=== PATIENT | female | born 1990 | race Caucasian/White ===

== ENCOUNTER 2016-10-20 18:19 | Emergency (ER) | payer BC ==
[2016-10-20 18:38] VITALS: BP 143/84
[2016-10-20] MEDS ORDERED: Ibuprofen TAB* 600 MG PO ONE (18:46)
--- NOTE | 2016-10-20 19:12 | UC ---
Elbow Pain - HPI Summary HPI Summary: hit left elbow on a chair at work today, has continue pain in left elbow - History of Current Complaint Chief Complaint: UCUpperExtremity Stated Complaint: ELBOW INJURY Time Seen by Provider: 10/20/16 18:42 Hx Obtained From: Patient Hx Last Menstrual Period: one month ago ?: No Mechanism of Injury: hit elbow on chair arm Onset/Duration: Hours, Traumatic, Still Present Severity Initially: Moderate Severity Currently: Moderate Pain Intensity: 6 Pain Scale Used: 0-10 Numeric Location Of Pain: Is Discrete @ - left elbow Character: Aching, Throbbing Aggravating Factor(s): Movement Alleviating Factor(s): Rest, Ice, OTC Meds Associated Signs And Symptoms: Positive: Negative - Allergies/Home Medications Allergies/Adverse Reactions: Allergies Allergy/AdvReac Type Severity Reaction Status Date / Time No Known Allergies Allergy Verified 10/20/16 18:38 PMH/Surg Hx/FS Hx/Imm Hx Previously Healthy: No Endocrine History Of: Denies: Diabetes, Thyroid Disease Cardiovascular History Of: Denies: Cardiac Disorders, Hypertension, Pacemaker/ICD Respiratory History Of: Denies: COPD, Asthma GI/ History Of: Reports: Ulcer - stomach ulcers Neurological History Of: Reports: Migraine - 3X A WEEK - Surgical History Surgical History: Yes Surgery Procedure, Year, and Place: Tonsillectomy, 2007, [facility] Dr. Kelley. Partial Discectomy L4 L5, 2008, [place]. Partial Discectomy L4 L5, 2009, [facility] [place] Dr. Leon. , 10/05/13, [facility] [place]. BACK SX--2014. jake jessica 2014 - Family History Known Family History: Positive: None, Unknown, Other - father with migraines - Social History Occupation: Employed Full-time Lives: With Family Alcohol Use: Occasionally Alcohol Amount: "a couple ... maybe once a month" Substance Use Type: None Smoking Status (MU): Current Every Day Smoker Type: Cigarettes Amount Used/How Often: 1/2 ppd Length of Time of Smoking/Using Tobacco: 3 YRS Have You Smoked in the Last Year: Yes Household Exposure Type: Cigarettes Cessation Counseling: Patient Advised to Stop - Immunization History Most Recent Influenza Vaccination: no Review of Systems Constitutional: Negative Skin: Negative Eyes: Negative ENT: Negative Respiratory: Negative Cardiovascular: Negative Gastrointestinal: Negative Genitourinary: Negative Motor: Negative Neurovascular: Negative Musculoskeletal: Arthralgia - left elbow pain Neurological: Negative Psychological: Negative All Other Systems Reviewed And Are Negative: Yes Physical Exam Triage Information Reviewed: Yes Appearance: Well-Appearing, No Pain Distress, Well-Nourished Vital Signs: Initial Vital Signs Temp 98.1 F 10/20/16 18:34 Pulse 79 10/20/16 18:34 Resp 18 10/20/16 18:34 BP 143/84 10/20/16 18:34 Pulse Ox 100 10/20/16 18:34 Vital Signs Reviewed: Yes Eye Exam: Normal Eyes: Positive: Conjunctiva Clear ENT Exam: Normal ENT: Positive: Normal ENT inspection, Hearing grossly normal. Negative: Nasal congestion, Nasal drainage, Trismus, Muffled/hoarse voice Dental Exam: Normal Neck exam: Normal Neck: Positive: Supple, Nontender, No Lymphadenopathy Respiratory Exam: Normal Respiratory: Positive: Chest non-tender, Lungs clear, Normal breath sounds, No respiratory distress, No accessory muscle use Cardiovascular Exam: Normal Cardiovascular: Positive: RRR, No Murmur, Pulses Normal, Brisk Capillary Refill Musculoskeletal Exam: Normal Musculoskeletal: Positive: No Edema, Strength Limited @ - left elbow, ROM Limited @ - painful to supinate Neurological Exam: Normal Neurological: Positive: Alert, Muscle Tone Normal Psychological Exam: Normal Skin Exam: Normal Diagnostics - Radiology No standard instances Xray Interpretation: No Acute Changes Radiology Interpretation Completed By: Radiologist Elbow Pain Course/Dx - Course Course Of Treatment: mee wrap, rice, ibuprofen follow with orth in 4 days if not returned to baseline function and is pain free - Differential Dx/Diagnosis Differential Diagnosis/HQI/PQRI: Contusion, Fracture (Closed), Sprain, Strain Provider Diagnoses: left elbow contusion Discharge - Discharge Plan Condition: Stable Disposition: HOME Patient Education Materials: Ibuprofen (By mouth), Contusion in Adults (ED), Arthralgia (ED), RICE Therapy (ED) Forms: *Work Release Referrals: Clayton Alvarenga MD [Primary Care Provider] - Fernanda Tabor MD [Medical Doctor] - 7 Days
--- NOTE | 2016-10-20 19:19 | RAD ---
INDICATION: Hit elbow on a chair . Left elbow pain COMPARISON: None TECHNIQUE: AP, lateral, and oblique views were obtained. FINDINGS: The bony structures, joint spaces, and soft tissues are normal for age. IMPRESSION: NEGATIVE EXAMINATION.
== END 2016-10-20 19:33 | disposition home or self-care (01) ==
LOC: UCEAST 18:19
DX: S50.02XA Contusion of left elbow, initial encounter (principal); W22.03XA Walked into furniture, initial encounter; Y93.9 Activity, unspecified; Y92.59 Other trade areas as the place of occurrence of the external cause; Y99.0 Civilian activity done for income or pay; F17.210 Nicotine dependence, cigarettes, uncomplicated
CPT/HCPCS: 99212; A9270-GY; G0463

== ENCOUNTER 2016-10-25 15:09 | Emergency (ER) | payer BC ==
[2016-10-25 15:17] VITALS: BP 138/79
--- NOTE | 2016-10-25 15:33 | UC ---
Upper Extremity HPI - HPI Summary HPI Summary: Pt contused L elbow on chair 10/20/16. Was given work note through yesterday and had today off. Needs note to return to full duty tomorrow. No longer has pain or restricted ROM. Would like to return to work. - History of Current Complaint Chief Complaint: UCUpperExtremity Stated Complaint: NOTE FOR WORK Time Seen by Provider: 10/25/16 15:23 Hx Obtained From: Patient Hx Last Menstrual Period: 09/29/16 ?: No Onset/Duration: Sudden Onset Severity Initially: Moderate Severity Currently: None Location Of Pain: Is Discrete @ Character: Dull Aggravating Factor(s): Movement Alleviating Factor(s): Nothing Associated Signs And Symptoms: Positive: Swelling - resolved Related History: Dominant Hand Right - Allergies/Home Medications Allergies/Adverse Reactions: Allergies Allergy/AdvReac Type Severity Reaction Status Date / Time No Known Allergies Allergy Verified 10/25/16 15:17 PMH/Surg Hx/FS Hx/Imm Hx Endocrine History Of: Denies: Diabetes, Thyroid Disease Cardiovascular History Of: Denies: Cardiac Disorders, Hypertension, Pacemaker/ICD Respiratory History Of: Denies: COPD, Asthma GI/ History Of: Reports: Ulcer - stomach ulcers Neurological History Of: Reports: Migraine - 3X A WEEK - Surgical History Surgical History: Yes Surgery Procedure, Year, and Place: Tonsillectomy, 2007, [facility] Dr. Kelley. Partial Discectomy L4 L5, 2008, [place]. Partial Discectomy L4 L5, 2009, [facility] [place] Leon. , 10/05/13, [facility] [place]. BACK SX--2014. lap jessica 2014 - Family History Known Family History: Positive: None, Unknown, Other - father with migraines - Social History Occupation: Employed Full-time Alcohol Use: Occasionally Alcohol Amount: "a couple ... maybe once a month" Substance Use Type: None Smoking Status (MU): Current Every Day Smoker Type: Cigarettes Amount Used/How Often: 1/2 ppd Length of Time of Smoking/Using Tobacco: 3 YRS Have You Smoked in the Last Year: Yes Household Exposure Type: Cigarettes - Immunization History Most Recent Influenza Vaccination: no Review of Systems Constitutional: Negative Skin: Negative Eyes: Negative ENT: Negative Respiratory: Negative Cardiovascular: Negative Gastrointestinal: Negative Genitourinary: Negative Motor: Negative Neurovascular: Negative Musculoskeletal: Arthralgia Neurological: Negative Psychological: Negative All Other Systems Reviewed And Are Negative: Yes Physical Exam Triage Information Reviewed: Yes Appearance: Well-Appearing, No Pain Distress, Well-Nourished Vital Signs: Initial Vital Signs Temp 97.6 F 10/25/16 15:13 Pulse 71 10/25/16 15:13 Resp 16 10/25/16 15:13 BP 138/79 10/25/16 15:13 Pulse Ox 100 10/25/16 15:13 Vital Signs Reviewed: Yes Eye Exam: Normal Eyes: Positive: Conjunctiva Clear ENT Exam: Normal ENT: Positive: Normal ENT inspection, Hearing grossly normal, Pharynx normal, TMs normal Dental Exam: Normal Neck exam: Normal Neck: Positive: Supple, Nontender Respiratory Exam: Normal Respiratory: Positive: Chest non-tender, Lungs clear, Normal breath sounds, No respiratory distress, No accessory muscle use Cardiovascular Exam: Normal Cardiovascular: Positive: RRR, No Murmur Musculoskeletal Exam: Normal Musculoskeletal: Positive: Strength Intact, ROM Intact Neurological Exam: Normal Psychological Exam: Normal Skin Exam: Normal Upper Extremity Course/Dx - Differential Dx/Diagnosis Provider Diagnoses: L elbow contusion resolved Discharge - Discharge Plan Condition: Stable Disposition: HOME Patient Education Materials: Contusion in Adults (ED) Forms: *Work Release Referrals: Clayton Alvarenga MD [Primary Care Provider] - Additional Instructions: Your symptoms have resolved. No further testing or treatment is needed at this time. Please call or return if you have new questions or concerns.
== END 2016-10-25 15:32 | disposition home or self-care (01) ==
LOC: UCEAST 15:09
DX: S50.02XD Contusion of left elbow, subsequent encounter (principal); W22.03XD Walked into furniture, subsequent encounter; F17.210 Nicotine dependence, cigarettes, uncomplicated
CPT/HCPCS: 99211; G0463

== ENCOUNTER 2016-12-16 12:35 | Emergency (ER) | payer BC ==
[2016-12-16] MEDS ORDERED: Ondansetron INJ* 2 MG/ML VIAL IV ONE (15:49)
[2016-12-16] MEDS ORDERED: Ketorolac INJ* 30 MG/ML 1 ML VIAL IV ONE (15:50)
[2016-12-16] MEDS: NS 0.9% 1000 ML* 2,000 ML IV ONE ×2 (16:24→16:28)
--- NOTE | 2016-12-16 16:36 | RAD ---
HISTORY: Headache COMPARISONS: June 25, 2013 TECHNIQUE: Multiple contiguous axial CT scans were obtained of the head without intravenous contrast. FINDINGS: HEMORRHAGE/INFARCT: There is no hemorrhage or acute infarct. MASSES/SHIFT: There is no mass or shift. EXTRA-AXIAL SPACES: There are no extra-axial fluid collections. SULCI AND VENTRICLES: The sulci and ventricles are normal in size and position for the patient's stated age. CEREBRUM: There are no focal parenchymal abnormalities. BRAINSTEM: There are no focal parenchymal abnormalities. CEREBELLUM: There are no focal parenchymal abnormalities. VESSELS: The vessels are grossly normal. PARANASAL SINUSES: The paranasal sinuses are clear. ORBITS: The orbits are unremarkable. BONES AND SOFT TISSUE: No bone or soft tissue abnormalities are noted. OTHER: None IMPRESSION: NO ACUTE INTRACRANIAL PATHOLOGY.
[2016-12-16 16:37] LABS: Hematocrit 40 % (35-47); Hemoglobin 13.5 g/dl (12.0-16.0); Mean Corpuscular HGB Conc 33 g/dl (31-36); Mean Corpuscular Hemoglobin 29 pg (27-31); Mean Corpuscular Volume 87 fL (80-97); Mean Platelet Volume 7 um3 (7.4-10.4); Red Blood Count 4.67 10^6/ul (4.0-5.4); Red Cell Distribution Width 14 % (10.5-15); White Blood Count 12.4 10^3/ul (3.5-10.8)
[2016-12-16 16:55] LABS: ALT 15 U/L (7-52); AST 16 U/L (13-39); Albumin 5.6 g/dL (3.2-5.2); Alkaline Phosphatase 79 U/L (34-104); Anion Gap 10 mmol/L (2-11); BUN/Creatinine Ratio 20.9 (8-20); Blood Urea Nitrogen 18 mg/dL (6-24); C Reactive Protein 3.75 mg/L (< 5.00); CO2 Carbon Dioxide 25 mmol/L (22-32); Calcium 10.7 mg/dL (8.6-10.3); Chloride 102 mmol/L (101-111); EGFR African American 104.3 (>60); EGFR Non-African American 81.1 (>60); Globulin 3.7 g/dL (2-4); Glucose 79 mg/dL (70-100); Potassium 3.6 mmol/L (3.5-5.0); Sodium 137 mmol/L (133-145); Total Protein 9.3 g/dL (6.4-8.9)
--- NOTE | 2016-12-16 17:23 | ED ---
Renetta Moses Anna, scribed for Sami Saba MD on 12/16/16 at 1549 . Headache - HPI Summary HPI Summary: Patient is a 26 y/o female coming to [facility] presenting with the sudden onset of a constant ANDRADE that began five days ago. She describes the severity of the pain as 8/10. She has additionally had photophobia, dizziness, nausea, and fatigue. Denies aura or blurred vision, fever, or neck pain. The pain is worse with sound and light. Her Has are typically alleviated by Excedrin, but not this time. She took a dose of Excedrin at 1100 today. This ANDRADE is located in the right frontal region, though her typical ANDRADE is in the left frontal region. Patient medications have been reviewed this visit. 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 Court Magistrate - accompanied by significant other Hx Last Menstrual Period: 09/29/16 Onset/Duration: Sudden Onset, Started days ago, Still Present Initially Headache Was: Initial Pain Scale(0-10)= - 8/10 Currently Pain Is: Current Pain Scale(0-10)= - 8/10 Timing: Constant Location of Headache: Frontal Aggravating Factor: Bright Lights, Other - Noises Allevating Factors: Nothing - Allergies/Home Medications Allergies/Adverse Reactions: Allergies Allergy/AdvReac Type Severity Reaction Status Date / Time No Known Allergies Allergy Verified 10/25/16 15:17 PMH/Surg Hx/FS Hx/Imm Hx Endocrine/Hematology History: Denies: Hx Diabetes, Hx Thyroid Disease Cardiovascular History: Denies: Hx Hypertension, Hx Pacemaker/ICD, Other Cardiovascular Problems/ Disorders Respiratory History: Denies: Hx Asthma, Hx Chronic Obstructive Pulmonary Disease (COPD) GI History: Reports: Hx Ulcer - stomach ulcers History: Reports: Hx Kidney Infection - 6 YEARS AGO Sensory History: Reports: Hx Contacts or Glasses - GLASSES Denies: Hx Hearing Aid Opthamlomology History: Reports: Hx Contacts or Glasses - GLASSES Neurological History: Reports: Hx Headaches, Hx Migraine - 3X A WEEK Denies: Other Neuro Impairments/Disorders Psychiatric History: Denies: Hx Panic Disorder - Surgical History Surgery Procedure, Year, and Place: Tonsillectomy, 2008, [facility] Dr. Kelley. Partial Discectomy L4 L5, 2009, [place]. Partial Discectomy L4 L5, 2009, [facility] [place] Dr. Leon. , 10/05/13, [facility] [place]. BACK SX--2014. lap jessica 2014 Hx Anesthesia Reactions: No - Immunization History Date of Tetanus Vaccine: UP TO DATE Date of Influenza Vaccine: NONE Infectious Disease History: No Infectious Disease History: Denies: Hx Clostridium Difficile, Hx Hepatitis, Hx Human Immunodeficiency Virus (HIV), Hx of Known/Suspected MRSA, Hx Shingles, Hx Tuberculosis, Hx Known/ Suspected VRE, Hx Known/Suspected VRSA, History Other Infectious Disease, Traveled Outside the [place] in Last 30 Days - Family History Known Family History: Positive: Cardiac Disease, Other - father with migraines - Social History Lives: With Family Alcohol Use: Occasionally Alcohol Amount: "a couple ... maybe once a month" Substance Use Type: Reports: None Smoking Status (MU): Current Every Day Smoker Type: Cigarettes Amount Used/How Often: 1/2 ppd Length of Time of Smoking/Using Tobacco: 3 YRS Have You Smoked in the Last Year: Yes Review of Systems Positive: Fatigue. Negative: Fever Positive: Photophobia. Negative: Blurred Vision Positive: Nausea Neurological: Other - dizziness Positive: Headache All Other Systems Reviewed And Are Negative: Yes Physical Exam Triage Information Reviewed: Yes Vital Signs On Initial Exam: Initial Vitals Temp Pulse Resp BP Pulse Ox 98.3 F 80 20 141/78 99 12/16/16 12:43 12/16/16 12:43 12/16/16 12:43 12/16/16 12:43 12/16/16 12:43 Vital Signs Reviewed: Yes Appearance: Positive: Well-Appearing, No Pain Distress Skin: Positive: Warm, Skin Color Reflects Adequate Perfusion, Dry Head/Face: Positive: Normal Head/Face Inspection Eyes: Positive: EOMI, MARLENE ENT: Positive: Normal ENT inspection Neck: Positive: Supple, Nontender Respiratory/Lung Sounds: Positive: Clear to Auscultation, Breath Sounds Present Cardiovascular: Positive: RRR Abdomen Description: Positive: Nontender, Soft Bowel Sounds: Positive: Present Musculoskeletal: Positive: Normal, Strength/ROM Intact Neurological: Positive: Normal, Sensory/Motor Intact, Alert, Oriented to Person Place, Time Psychiatric: Positive: Affect/Mood Appropriate Diagnostics - Vital Signs Vital Signs Temp Pulse Resp BP Pulse Ox 12/16/16 14:37 99.4 F 65 18 124/66 100 12/16/16 12:45 97.8 F 72 16 141/78 99 12/16/16 12:43 98.3 F 80 20 141/78 99 - Laboratory Lab Results: Lab Results 12/16/16 12/16/16 12/16/16 Range/Units 16:20 16:20 16:20 WBC 12.4 H (3.5-10.8) 10^3/ul RBC 4.67 (4.0-5.4) 10^6/ul Hgb 13.5 (12.0-16.0) g/dl Hct 40 (35-47) % MCV 87 (80-97) fL MCH 29 (27-31) pg MCHC 33 (31-36) g/dl RDW 14 (10.5-15) % Plt Count 282 (150-450) 10^3/ul MPV 7 L (7.4-10.4) um3 Neut % (Auto) 67.0 (38-83) % Lymph % (Auto) 25.6 (25-47) % Caroline % (Auto) 5.4 (1-9) % Eos % (Auto) 1.5 (0-6) % Baso % (Auto) 0.5 (0-2) % Absolute Neuts (auto) 8.3 H (1.5-7.7) 10^3/ul Absolute Lymphs (auto) 3.2 (1.0-4.8) 10^3/ul Absolute Monos (auto) 0.7 (0-0.8) 10^3/ul Absolute Eos (auto) 0.2 (0-0.6) 10^3/ul Absolute Basos (auto) 0.1 (0-0.2) 10^3/ul Absolute Nucleated RBC 0.01 10^3/ul Nucleated RBC % 0.1 INR (Anticoag Therapy) 0.96 (0.89-1.11) APTT 37.7 H (26.0-36.3) seconds Sodium 137 (133-145) mmol/L Potassium 3.6 (3.5-5.0) mmol/L Chloride 102 (101-111) mmol/L Carbon Dioxide 25 (22-32) mmol/L Anion Gap 10 (2-11) mmol/L BUN 18 (6-24) mg/dL Creatinine 0.86 (0.51-0.95) mg/dL Est GFR ( Amer) 104.3 (>60) Est GFR (Non-Af Amer) 81.1 (>60) BUN/Creatinine Ratio 20.9 H (8-20) Glucose 79 (70-100) mg/dL Lactic Acid (0.5-2.0) mmol/L Calcium 10.7 H (8.6-10.3) mg/dL Total Bilirubin 0.60 (0.2-1.0) mg/dL AST 16 (13-39) U/L ALT 15 (7-52) U/L Alkaline Phosphatase 79 (34-104) U/L C-Reactive Protein 3.75 (< 5.00) mg/L Total Protein 9.3 H (6.4-8.9) g/dL Albumin 5.6 H (3.2-5.2) g/dL Globulin 3.7 (2-4) g/dL Albumin/Globulin Ratio 1.5 (1-3) Beta HCG, Quant < 0.60 mIU/mL 12/16/16 Range/Units 16:20 WBC (3.5-10.8) 10^3/ul RBC (4.0-5.4) 10^6/ul Hgb (12.0-16.0) g/dl Hct (35-47) % MCV (80-97) fL MCH (27-31) pg MCHC (31-36) g/dl RDW (10.5-15) % Plt Count (150-450) 10^3/ul MPV (7.4-10.4) um3 Neut % (Auto) (38-83) % Lymph % (Auto) (25-47) % Caroline % (Auto) (1-9) % Eos % (Auto) (0-6) % Baso % (Auto) (0-2) % Absolute Neuts (auto) (1.5-7.7) 10^3/ul Absolute Lymphs (auto) (1.0-4.8) 10^3/ul Absolute Monos (auto) (0-0.8) 10^3/ul Absolute Eos (auto) (0-0.6) 10^3/ul Absolute Basos (auto) (0-0.2) 10^3/ul Absolute Nucleated RBC 10^3/ul Nucleated RBC % INR (Anticoag Therapy) (0.89-1.11) APTT (26.0-36.3) seconds Sodium (133-145) mmol/L Potassium (3.5-5.0) mmol/L Chloride (101-111) mmol/L Carbon Dioxide (22-32) mmol/L Anion Gap (2-11) mmol/L BUN (6-24) mg/dL Creatinine (0.51-0.95) mg/dL Est GFR ( Amer) (>60) Est GFR (Non-Af Amer) (>60) BUN/Creatinine Ratio (8-20) Glucose (70-100) mg/dL Lactic Acid 1.0 (0.5-2.0) mmol/L Calcium (8.6-10.3) mg/dL Total Bilirubin (0.2-1.0) mg/dL AST (13-39) U/L ALT (7-52) U/L Alkaline Phosphatase (34-104) U/L C-Reactive Protein (< 5.00) mg/L Total Protein (6.4-8.9) g/dL Albumin (3.2-5.2) g/dL Globulin (2-4) g/dL Albumin/Globulin Ratio (1-3) Beta HCG, Quant mIU/mL Result Diagrams: 12/16/16 16:20 12/16/16 16:20 Lab Statement: Any lab studies that have been ordered have been reviewed, and results considered in the medical decision making process. - CT Brain CT CT Interpretation: No Acute Changes CT Interpretation Completed By: Radiologist - IMPRESSION: NO ACUTE INTRACRANIAL PATHOLOGY. Re-Evaluation - Re-Evaluation First Eval Re-Evaluation Time: 17:18 Change: Improved Comment: She is feeling better at this time. Discussed results and plan of care with patient and family. Patient and family are agreeable with plan. Headache Course/Dx - Course Course Of Treatment: NO CRITICAL CARE TIME Assessment/Plan: ANDRADE IMPROVED IN ED AFTER IVF, ZOFRAN AND TORADOL. DISCUSSED RESULTS WITH PATIENT. DISCHARGE HOME STABLE. - Diagnoses Provider Diagnoses: Headache Discharge - Discharge Plan Condition: Stable Disposition: HOME Patient Education Materials: General Headache (ED) Referrals: Clayton Alvarenga MD [Primary Care Provider] - Additional Instructions: FOLLOW UP WITH YOUR DOCTOR. RETURN TO THE EMERGENCY DEPARTMENT FOR ANY WORSENING OF YOUR CONDITION OR QUESTIONS OR CONCERNS. The documentation as recorded by the Renetta quinonez Anna accurately reflects the service I personally performed and the decisions made by me, Sami Saba MD.
[2016-12-16 17:31] VITALS: BP 127/89
== END 2016-12-16 17:30 | disposition home or self-care (01) ==
LOC: ED 12:35
DX: R51 Headache (principal); H53.149 Visual discomfort, unspecified; R53.83 Other fatigue; R11.0 Nausea; R42 Dizziness and giddiness; F17.210 Nicotine dependence, cigarettes, uncomplicated
CPT/HCPCS: 36415; 70450; 80053; 83605; 84702; 85025; 85610; 85730; 86140; 96374; 96375; 99282; J1885; J2405

== ENCOUNTER 2017-01-18 16:20 | Emergency (ER) | payer SELFPAY ==
[2017-01-18 16:38] VITALS: BP 126/81
[2017-01-18] MEDS ORDERED: Ketorolac INJ* 60 MG/2 ML VIAL IM ONE (16:47)
--- NOTE | 2017-01-18 17:22 | UC ---
Knee Pain HPI - HPI Summary HPI Summary: Patient presents to s/p knee injury. She states yesterday she trapped the knee in a van door at work. She is unsure the exact mechanism of injury. There is an abrasion just inferior to the right knee without bruising. Denies numbness/tingling. She has been able to ambulate, but with pain. She is otherwise healthy, takes no medications. Denies other symptoms or injuries at this time. She has not tried anything at home to improve the symptoms. - History of Current Complaint Chief Complaint: UCLowerExtremity Stated Complaint: RIGHT KNEE INJURY WC Time Seen by Provider: 01/18/17 16:31 Hx Obtained From: Patient Hx Last Menstrual Period: HAVING PERIOD NOW ?: No Onset/Duration: Sudden Onset Severity Initially: Mild Severity Currently: Mild Location Of Injury: right knee Pain Intensity: 0 Pain Scale Used: 0-10 Numeric Character: Aching, Throbbing Aggravating Factor(s): Movement, Weight Bearing, Prolonged Standing Alleviating Factor(s): Rest Associated Signs And Symptoms: Positive: Negative Able to Bear Weight: Yes - Risk Factors Septic Arthritis Risk Factor: Negative Gout Risk Factor: Negative - Allergies/Home Medications Allergies/Adverse Reactions: Allergies Allergy/AdvReac Type Severity Reaction Status Date / Time No Known Allergies Allergy Verified 01/18/17 16:31 PMH/Surg Hx/FS Hx/Imm Hx Previously Healthy: Yes - Surgical History Surgical History: Yes Surgery Procedure, Year, and Place: Tonsillectomy, 2007, [facility] Dr. Kelley. Partial Discectomy L4 L5, 2008, [place]. Partial Discectomy L4 L5, [place], [facility] [place] Leon. , 10[place] [facility] [place] BACK SX--2014. lap jessica 2014 - Family History Known Family History: Positive: None, Unknown, Cardiac Disease, Other - father with migraines - Social History Occupation: Employed Full-time Lives: With Family Alcohol Use: Occasionally Alcohol Amount: "a couple ... maybe once a month" Substance Use Type: None Smoking Status (MU): Current Every Day Smoker Type: Cigarettes Amount Used/How Often: 4 CIGS PER DAY Length of Time of Smoking/Using Tobacco: 3 YRS Have You Smoked in the Last Year: Yes Household Exposure Type: Cigarettes - Immunization History Most Recent Influenza Vaccination: no Review of Systems Constitutional: Negative Skin: Other - abrasion just inferior to the right knee Respiratory: Negative Cardiovascular: Negative Genitourinary: Negative Motor: Negative Musculoskeletal: Arthralgia - pain with flexion and extension of the right knee. Neurological: Negative Psychological: Negative All Other Systems Reviewed And Are Negative: Yes Physical Exam Triage Information Reviewed: Yes Appearance: Well-Appearing, No Pain Distress, Well-Nourished Vital Signs: Initial Vital Signs Temp 99.2 F 01/18/17 16:32 Pulse 76 01/18/17 16:32 Resp 14 01/18/17 16:32 BP 126/81 01/18/17 16:32 Pulse Ox 100 01/18/17 16:32 Vital Signs Reviewed: Yes Eye Exam: Normal Eyes: Positive: Conjunctiva Clear Neck exam: Normal Neck: Positive: Supple, No Lymphadenopathy Respiratory Exam: Normal Respiratory: Positive: Chest non-tender Cardiovascular Exam: Normal Cardiovascular: Positive: RRR Musculoskeletal: Positive: Other: - ROM limited d/t pain Neurological Exam: Normal Neurological: Positive: Alert Psychological: Positive: Normal Response To Family, Age Appropriate Behavior Skin Exam: Normal Knee Pain Course/Dx - Course Course Of Treatment: Patient presents to with right knee injury after jamming it in a car door at work yesterday. She states she has pain with flexion and extension. Mcmurrays positive, Anterior drawer negative. There is a small abrasion just inferior to the right knee without ecchymosis. +2 pulses bilaterally. Denies numbness or tingling. Denies previous injury to the knee. WC case. Paperwork filled out for patient to return to work in 1 day. Note given for work. Encouraged ibuprofen for pain and dx with knee contusion. No follow up or referral is needed. Xray negative for acute findings. Patient is OK with discharge. Toradol 60mg IM given in with moderate effect. - Differential Dx/Diagnosis Differential Diagnosis/HQI/PQRI: Abrasion, Contusion, Dislocation, Fracture ( Closed), Fracture (Open) Provider Diagnoses: Knee Contusion Discharge - Discharge Plan Condition: Stable Disposition: HOME Patient Education Materials: Knee Pain (ED) Referrals: Clayton Alvarenga MD [Primary Care Provider] - Additional Instructions: Ibuprofen 600mg three times daily Follow up as needed if symptoms become worse Moist heat to the area for comfort Bernardo wrap the knee as needed for any pain
--- NOTE | 2017-01-18 17:40 | RAD ---
INDICATION: Right knee injury. TECHNIQUE: 4 views of the right knee were obtained. FINDINGS: The bones are in normal alignment. No joint effusion or fracture is seen. Joint spaces appear maintained. IMPRESSION: NO EVIDENCE FOR FRACTURE.
== END 2017-01-18 17:11 | disposition home or self-care (01) ==
LOC: UCCORT 16:20
DX: S80.01XA Contusion of right knee, initial encounter (principal); V58.3XXA Unspecified occupant of pick-up truck or van injured in noncollision transport accident in nontraffic accident, initial encounter; Y93.89 Activity, other specified; Y92.9 Unspecified place or not applicable; Y99.0 Civilian activity done for income or pay; F17.210 Nicotine dependence, cigarettes, uncomplicated
CPT/HCPCS: 96372; 99211; G0463; J1885

== ENCOUNTER 2017-02-24 21:47 | Emergency (ER) | payer BC ==
[2017-02-24 23:10] VITALS: BP 119/64
[2017-02-24] MEDS ORDERED: Amoxicillin PO (*) 500 MG CAP PO ONE (23:21)
[2017-02-24] MEDS ORDERED: Ibuprofen TAB* 400 MG PO ONE (23:21)
--- NOTE | 2017-02-24 23:38 | UC ---
Hip/Pelvis Pain - HPI Summary HPI Summary: 26 yo female with right lat hip pain x 1 day no injury on her legs all day ? bruised - History Of Current Complaint Chief Complaint: UCLowerExtremity Stated Complaint: RIGHT LEG BRUISING,THROBBING PAIN Time Seen by Provider: 02/24/17 23:12 Hx Obtained From: Patient Hx Last Menstrual Period: MIDDLE OF DECEMBER. LASTED 5 WEEKS. HAS IMPLAMON Onset/Duration: Gradual Onset Severity Initially: Moderate Severity Currently: Mild Pain Intensity: 3 Character Of Pain: Aching Aggravating Factor(s): Weight Bearing, Other - touch Alleviating Factor(s): Rest, OTC Medications Associated Signs And Symptoms: Positive: Bruising - ? - Allergies/Home Medications Allergies/Adverse Reactions: Allergies Allergy/AdvReac Type Severity Reaction Status Date / Time No Known Allergies Allergy Verified 02/24/17 22:56 PMH/Surg Hx/FS Hx/Imm Hx Previously Healthy: Yes Respiratory History: Bronchitis, Pneumonia - Surgical History Surgical History: Yes Surgery Procedure, Year, and Place: Tonsillectomy, 2007, [facility] Dr. Kelley. Partial Discectomy L4 L5, 2008, [place]. Partial Discectomy L4 L5, [place], [facility] [place]. , 10/05/13, [facility] [place] BACK SX--2014. jake lopez 2014 - Family History Known Family History: Positive: Cardiac Disease, Hypertension, Diabetes, Other - father with migraines/no hx DVT or PE - Social History Alcohol Use: Occasionally Alcohol Amount: "a couple ... maybe once a month" Substance Use Type: None Smoking Status (MU): Current Every Day Smoker Type: Cigarettes Amount Used/How Often: 5 CIGS PER DAY Length of Time of Smoking/Using Tobacco: 3 YRS Have You Smoked in the Last Year: Yes Household Exposure Type: Cigarettes - Immunization History Most Recent Influenza Vaccination: no Review of Systems Constitutional: Negative Skin: Negative Eyes: Negative ENT: Negative Respiratory: Cough - x3wks Cardiovascular: Other - chest tignt at times Gastrointestinal: Negative Genitourinary: Negative Motor: Negative Neurovascular: Negative Musculoskeletal: Myalgia Neurological: Negative Psychological: Negative All Other Systems Reviewed And Are Negative: Yes Physical Exam Triage Information Reviewed: Yes Appearance: Well-Appearing, No Pain Distress, Well-Nourished Vital Signs: Initial Vital Signs Temp 98.3 F 02/24/17 22:57 Pulse 81 02/24/17 22:57 Resp 16 02/24/17 22:57 BP 119/64 02/24/17 22:57 Pulse Ox 99 02/24/17 22:57 Vital Signs Reviewed: Yes Eyes: Positive: Conjunctiva Clear ENT: Positive: Hearing grossly normal, TMs normal. Negative: Nasal congestion, Nasal drainage, Trismus, Muffled/hoarse voice Neck: Positive: Supple, Nontender Respiratory: Positive: Normal breath sounds, No respiratory distress, No accessory muscle use, Wheezing - with forced expiration. Negative: Respiratory distress Cardiovascular: Positive: RRR, No Murmur Abdomen Description: Positive: Nontender, No Organomegaly Musculoskeletal: Positive: ROM Intact, No Edema Neurological: Positive: Alert Psychological Exam: Normal Skin Exam: Normal Hip Injury Course/Dx - Differential Dx/Diagnosis Provider Diagnoses: acute bronchitis. right leg pain of uncertain cause Discharge - Discharge Plan Condition: Stable Disposition: HOME Prescriptions: Amoxicillin PO (*) [Amoxicillin 875 MG (*)] 875 mg PO BID #20 tab Ibuprofen TAB* [Motrin TAB*] 600 mg PO Q6H PRN #40 tab PRN Reason: Pain Patient Education Materials: Acute Bronchitis (ED), Leg Pain (ED) Referrals: Clayton Alvarenga MD [Primary Care Provider] - 4 Days (if not better) Images Front/Back of Body, Lg (Forest): 1 - some varicosities/no redness or heat 2 - equal at 10 cm below tibial tubercle 3 - equal at 20 cm below tibial tubercle
== END 2017-02-24 23:48 | disposition home or self-care (01) ==
LOC: UCCORT 21:47
DX: J20.9 Acute bronchitis, unspecified (principal); M79.604 Pain in right leg; F17.210 Nicotine dependence, cigarettes, uncomplicated
CPT/HCPCS: 99212; A9270-GY; G0463

== ENCOUNTER 2017-02-27 20:42 | Emergency (ER) | payer BC ==
--- NOTE | 2017-02-27 20:51 | UC ---
Lower Extremity/Ankle HPI - HPI Summary HPI Summary: 26 year old female presents with complains of right leg pain. - History of Current Complaint Stated Complaint: RE-CK LEG PAIN Time Seen by Provider: 02/27/17 20:49 Hx Last Menstrual Period: HAVING PERIOD NOW - Allergies/Home Medications Allergies/Adverse Reactions: Allergies Allergy/AdvReac Type Severity Reaction Status Date / Time No Known Allergies Allergy Verified 02/27/17 20:47 PMH/Surg Hx/FS Hx/Imm Hx - Surgical History Surgical History: Yes Surgery Procedure, Year, and Place: Tonsillectomy, 2007, [facility] Dr. Kelley. Partial Discectomy L4 L5, 2008, [place]. [place], [place] [facility] [place] , [place] [facility] [place]. lap jessica 2014 - Family History Known Family History: Positive: Cardiac Disease, Hypertension, Diabetes, Other - father with migraines/no hx DVT or PE - Social History Alcohol Use: Occasionally Alcohol Amount: "a couple ... maybe once a month" Substance Use Type: None Smoking Status (MU): Current Every Day Smoker Type: Cigarettes Amount Used/How Often: 4 CIGS PER DAY Length of Time of Smoking/Using Tobacco: 3 YRS Have You Smoked in the Last Year: Yes Household Exposure Type: Cigarettes - Immunization History Most Recent Influenza Vaccination: no Review of Systems Constitutional: Negative Skin: Negative Eyes: Negative ENT: Negative Respiratory: Negative Cardiovascular: Negative Gastrointestinal: Negative Genitourinary: Negative Motor: Negative Neurovascular: Negative Musculoskeletal: Other: - right leg pain Neurological: Negative Psychological: Negative All Other Systems Reviewed And Are Negative: Yes Physical Exam Triage Information Reviewed: Yes Eye Exam: Normal ENT Exam: Normal Dental Exam: Normal Neck exam: Normal Neck: Positive: 1 Respiratory Exam: Normal Cardiovascular Exam: Normal Abdominal Exam: Normal Musculoskeletal: Positive: Other: - right leg pain right great trochanteric bursa swelling/tenderness Neurological Exam: Normal Psychological Exam: Normal Skin Exam: Normal Lower Extremity Course/Dx - Differential Dx/Diagnosis Provider Diagnoses: right greater trochanteric bursitis Discharge - Discharge Plan Condition: Stable Disposition: HOME Prescriptions: Diclofenac 1% GEL (NF) [Voltaren 1% GEL (NF)] 4 gm TOPICAL BID PRN #1 tube PRN Reason: Pain - Moderate To Severe Methylprednisolone [Medrol Dosepak 4 MG*] 4 mg PO .SEE EDDIE INSTRUCTION #21 tab Patient Education Materials: Leg Pain (ED) Forms: *Work Release Referrals: Clayton Alvarenga MD [Primary Care Provider] - David Kern MD [Medical Doctor] -
[2017-02-27 20:52] VITALS: BP 130/70
[2017-02-27] MEDS ORDERED: predniSONE TAB* 20 MG PO ONE (20:59)
== END 2017-02-27 21:10 | disposition home or self-care (01) ==
LOC: UCCORT 20:42
DX: M70.61 Trochanteric bursitis, right hip (principal); Z72.0 Tobacco use
CPT/HCPCS: 99212; G0463; J7512

== ENCOUNTER 2017-12-12 11:23 | Emergency (ER) | payer MEDICAID ==
[2017-12-12 11:42] VITALS: BP 132/73
--- NOTE | 2017-12-12 12:04 | ED ---
Throat Pain/Nasal Congestion - HPI Summary HPI Summary: 27 yr old female with complaint of right eyelid irritation. Onset of symptoms about a day ago. She has some mild edema lower right eyelid, and a raised bump inside lower right eyelid. She has some slight drainage. No change in vision - History of Current Complaint Chief Complaint: UCEye Time Seen by Provider: 12/12/17 11:45 - Allergies/Home Medications Allergies/Adverse Reactions: Allergies Allergy/AdvReac Type Severity Reaction Status Date / Time No Known Allergies Allergy Verified 12/12/17 11:35 PMH/Surg Hx/FS Hx/Imm Hx Endocrine/Hematology History: Denies: Hx Diabetes, Hx Thyroid Disease Cardiovascular History: Denies: Hx Hypertension, Hx Pacemaker/ICD, Other Cardiovascular Problems/ Disorders Respiratory History: Denies: Hx Asthma, Hx Chronic Obstructive Pulmonary Disease (COPD) GI History: Reports: Hx Gall Bladder Disease, Hx Ulcer - stomach ulcers History: Reports: Hx Kidney Infection - 6 YEARS AGO Denies: Hx Renal Disease Musculoskeletal History: Reports: Hx Back Problems Sensory History: Reports: Hx Contacts or Glasses Denies: Hx Hearing Aid Opthamlomology History: Reports: Hx Contacts or Glasses Neurological History: Reports: Hx Headaches, Hx Migraine Denies: Other Neuro Impairments/Disorders Psychiatric History: Denies: Hx Panic Disorder - Surgical History Surgery Procedure, Year, and Place: Tonsillectomy, 2007, [facility] Dr. Kelley. Partial Discectomy L4 L5, 2008, [place]. [place], [place] [facility] [place] , [place] [facility] [place]. lap cholecystectomy 2014 Hx Anesthesia Reactions: No - Immunization History Date of Tetanus Vaccine: UP TO DATE Date of Influenza Vaccine: NONE Infectious Disease History: No Infectious Disease History: Denies: Hx Clostridium Difficile, Hx Hepatitis, Hx Human Immunodeficiency Virus (HIV), Hx of Known/Suspected MRSA, Hx Shingles, Hx Tuberculosis, Hx Known/ Suspected VRE, Hx Known/Suspected VRSA, History Other Infectious Disease, Traveled Outside the [place] in Last 30 Days - Family History Known Family History: Positive: Cardiac Disease, Hypertension, Diabetes, Other - father with migraines/no hx DVT or PE - Social History Occupation: Employed Full-time Alcohol Use: Occasionally Alcohol Amount: "a couple ... maybe once a month" Substance Use Type: Reports: None Smoking Status (MU): Light Every Day Tobacco Smoker Type: Cigarettes Amount Used/How Often: 3 CIGS PER DAY Length of Time of Smoking/Using Tobacco: 3 YRS Have You Smoked in the Last Year: Yes Review of Systems Constitutional: Negative Positive: Drainage. Negative: Diplopia All Other Systems Reviewed And Are Negative: Yes Physical Exam Triage Information Reviewed: Yes Vital Signs On Initial Exam: Initial Vitals Temp Pulse Resp BP Pulse Ox 97.0 F 76 16 132/73 100 12/12/17 11:36 12/12/17 11:36 12/12/17 11:36 12/12/17 11:36 12/12/17 11:36 Vital Signs Reviewed: Yes Appearance: Positive: Well-Appearing, No Pain Distress Skin: Positive: Warm Head/Face: Positive: Normal Head/Face Inspection Eyes: Positive: EOMI, MARLENE, Conjunctiva Inflammed - right, with hordeolum lower right eyelid. No orbital cellulitis. EOM intact.. Negative: Discharge ENT: Positive: Normal ENT inspection Neck: Positive: Supple Respiratory/Lung Sounds: Positive: Clear to Auscultation, Breath Sounds Present Cardiovascular: Positive: RRR. Negative: Murmur Abdomen Description: Negative: Distended Musculoskeletal: Positive: Strength/ROM Intact Neurological: Positive: Sensory/Motor Intact, Alert, Oriented to Person Place, Time, CN Intact II-III, Normal Gait, Speech Normal Psychiatric: Positive: Normal - [place] Coma Scale Best Eye Response: 4 - Spontaneous Best Motor Response: 6 - Obeys Commands Best Verbal Response: 5 - Oriented Coma Scale Total: 15 Diagnostics - Vital Signs Vital Signs Temp Pulse Resp BP Pulse Ox 12/12/17 11:36 97.0 F 76 16 132/73 100 - Laboratory Lab Statement: Any lab studies that have been ordered have been reviewed, and results considered in the medical decision making process. EENT Course/Dx - Course Course Of Treatment: 27 yrold with hordeolum. erythro eye ointment tid. FU with optho. - Diagnoses Provider Diagnoses: Hordeolum internum left lower eyelid Discharge - Sign-Out/Discharge Documenting (check all that apply): Discharge/Admit/Transfer - Discharge Plan Condition: Good Disposition: HOME Prescriptions: Erythromycin OPTH OINT* [Erythromycin 0.5% OPTH OINT*] 1 applic RIGHT EYE TID # 1 tube Patient Education Materials: Hope (ED) Referrals: Clayton Alvarenga MD [Primary Care Provider] - 2 Weeks Mauro Angel MD [Medical Doctor] - 2 Days - Billing Disposition and Condition Condition: GOOD Disposition: HOME
== END 2017-12-12 12:04 | disposition home or self-care (01) ==
LOC: UCCORT 11:23
DX: H00.015 Hordeolum externum left lower eyelid (principal); F17.210 Nicotine dependence, cigarettes, uncomplicated
CPT/HCPCS: 99212; G0463

== ENCOUNTER 2018-03-07 11:47 | Emergency (ER) | payer MEDICAID ==
[2018-03-07 12:06] VITALS: BP 118/71
--- NOTE | 2018-03-07 12:29 | UC ---
Throat Pain/Nasal Natalio HPI - HPI Summary HPI Summary: 27 y/o male presents to the urgent care c/o sinus pressure, ANDRADE, RT ear pain, yellowish nasal discharge and a dry cough for the past 2 weeks. This morning her cough became productive w/ green phlegm, and ANDRADE. she has taking Advil cold and sinus w/o any improvement. Pain is 7/10. Pt denies fever, SOB, chest pain, abdominal pain, N/V/D. - History of Current Complaint Chief Complaint: UCGeneralIllness Stated Complaint: EAR/ST/SINUS COMPLAINT Hx Obtained From: Patient Hx Last Menstrual Period: 02/24/18 ?: No Onset/Duration: Gradual Onset, Lasting Weeks - 2 weeks, Still Present, Worse Since - 2 days Severity: Moderate Pain Intensity: 7 Pain Scale Used: 0-10 Numeric Cough: Sputum Appears - green Associated Signs & Symptoms: Positive: Dysphagia - mild, Sinus Discomfort, Nasal Discharge - yellowish. Negative: Fever - Epiglottits Risk Factors Epiglottis Risk Factors: Negative - Allergies/Home Medications Allergies/Adverse Reactions: Allergies Allergy/AdvReac Type Severity Reaction Status Date / Time No Known Allergies Allergy Verified 03/07/18 12:04 Home Medications: Home Medications Ibuprofen TAB* [Advil TAB*] 400 mg PO Q6H PRN 03/07/18 [History Confirmed ] PMH/Surg Hx/FS Hx/Imm Hx Previously Healthy: Yes - Pt denies PMHX - Surgical History Surgical History: Yes Surgery Procedure, Year, and Place: Tonsillectomy, 2007, [facility] Dr. Kelley. Partial Discectomy L4 L5, 2008, [place]. Partial Discectomy L4 L5, 2009, [facility] [place] Dr. Leon. , 10/05/13, [facility] [place]. discectomy --2014. lap cholecystectomy 2014 - Family History Known Family History: Positive: Cardiac Disease, Hypertension, Diabetes, Other - father with migraines/no hx DVT or PE Family History: father with migraines/no hx DVT or PE - Social History Occupation: Employed Full-time Lives: With Family Alcohol Use: Occasionally Alcohol Amount: "a couple ... maybe once a month" Substance Use Type: None Smoking Status (MU): Light Every Day Tobacco Smoker Type: Cigarettes Amount Used/How Often: 3 CIGS PER DAY Length of Time of Smoking/Using Tobacco: 3 YRS Have You Smoked in the Last Year: Yes Household Exposure Type: Cigarettes - Immunization History Most Recent Influenza Vaccination: no Review of Systems Constitutional: Negative Skin: Negative Eyes: Negative ENT: Ear Ache - RT ear pain and pressure, Nasal Discharge - yellowish, Sinus Congestion, Sinus Pain/Tenderness Respiratory: Cough - dry Cardiovascular: Negative Gastrointestinal: Negative Genitourinary: Negative Motor: Negative Neurovascular: Negative Musculoskeletal: Negative Neurological: Headache Psychological: Negative Is Patient Immunocompromised?: No All Other Systems Reviewed And Are Negative: Yes Physical Exam - Summary Physical Exam Summary: Vitals: reviewed General: Well developed, well-nourished female patient with NAD. Head and face: Normocephalic and atraumatic, Positive tenderness over the frontal and maxillary sinuses.. Eyes: PERRLA, EOMI x 2. Normal conjunctiva. No eye discharge. ENT: Ears and TM with normal limits. Nose: edematous and erythematous nasal mucosa with with yellowish discharge and erythematous mucosa. Pharynx with erythema, no exudate. +yellowish PND Neck: Supple, no JVD, no carotid bruits and no lymphadenopathy. Lungs: clear, no rales, no rhonchi, no wheezes. CVS: RRR, S1 and S2 present no murmurs or gallops appreciated. Abdomen: soft nontender with positive bowel sounds. Extremities: no edema noted. Neuro: WNL. Skin: warm and dry Triage Information Reviewed: Yes Vital Signs: Initial Vital Signs Temp 99.4 F 03/07/18 12:00 Pulse 74 03/07/18 12:00 Resp 18 03/07/18 12:00 BP 118/71 03/07/18 12:00 Pulse Ox 100 03/07/18 12:00 Throat Pain/Nasal Course/Dx - Course Course Of Treatment: 27 y/o male presents to the urgent care c/o sinus pressure , ANDRADE, RT ear pain, yellowish nasal discharge and a dry cough for the past 2 weeks. This morning her cough became productive w/ green phlegm, and ANDRADE. she has taking Advil cold and sinus w/o any improvement. Pain is 7/10. Pt denies fever, SOB, chest pain, abdominal pain, N/V/D. Hx obtained.Pt with 2 weeks of symptoms getting worse. Pt Rx Augmentin PO and flonase nasal spray. Discharge instructions explained to Pt. Advised to Return to the clinic or PCP if symptoms do not improve.Pt understood and agreed with plan of care. - Differential Dx/Diagnosis Differential Diagnosis/HQI/PQRI: Laryngitis, Pharyngitis, Sinusitis, URI Provider Diagnoses: 1- Acute bacterial sinusitis Discharge - Sign-Out/Discharge Documenting (check all that apply): Patient Departure - D/c home - Discharge Plan Condition: Stable Disposition: HOME Prescriptions: Amoxicillin/Clavulanate TAB* [Augmentin TAB 875*] 875 mg PO BID #20 tab Fluticasone NASAL SPRAY 50MCG* [Flonase NASAL SPRAY 50MCG*] 2 spray BOTH NARES DAILY #1 btl Patient Education Materials: Sinusitis (ED) Referrals: Clayton Alvarenga MD [Primary Care Provider] - 3 Days Additional Instructions: 1- Please increase fluid intake and rest. take full course of antibiotic to avoid resistance 2-Use Flonase as directed to help drain fluid. Also buy saline drops to clear sinuses 3- Continue taking Advil cold and Sinus PO to alleviates sinus congestion and sinus pain 4-Return to the clinic or PCP 3 days if symptoms do not improve for further management and treatment - Billing Disposition and Condition Condition: STABLE Disposition: Home
== END 2018-03-07 12:48 | disposition home or self-care (01) ==
LOC: UCCORT 11:47
DX: J01.90 Acute sinusitis, unspecified (principal); B96.89 Other specified bacterial agents as the cause of diseases classified elsewhere; F17.210 Nicotine dependence, cigarettes, uncomplicated
CPT/HCPCS: 99212; G0463

== ENCOUNTER 2018-04-22 13:55 | Emergency (ER) | payer OTHER ==
[2018-04-22 14:22] VITALS: BP 114/66
--- NOTE | 2018-04-22 15:12 | UC ---
Eye Complaint HPI - HPI Summary HPI Summary: C/O right eye discharge and swelling x 2 days with a feeling of a film over the eye. Also having a migraine ANDRADE. - History of Current Complaint Chief Complaint: UCEye Stated Complaint: RIGHT EYE COMPLAINT Time Seen by Provider: 04/22/18 15:01 Hx Obtained From: Patient Hx Last Menstrual Period: ONSET TODAY ?: No Onset/Duration: Sudden Onset, Lasting Days - 2, Worse Since - onsey Timing: Constant Severity Initially: Mild Severity Currently: Moderate Pain Intensity: 6 Character: Dull Aggravating Factor(s): Blinking Alleviating Factor(s): Darkness Associated Signs And Symptoms: Positive: Drainage (Clear), Vision Impairment Right - Risk Factors Penetrating Injury Risk Factor: Negative Globe Rupture Risk Factors: Negative - Allergies/Home Medications Allergies/Adverse Reactions: Allergies Allergy/AdvReac Type Severity Reaction Status Date / Time No Known Allergies Allergy Verified 04/22/18 14:10 Home Medications: Home Medications Fexofenadine (NF) [Fernanda 180 (NF)] 180 mg PO ONCE PRN 04/22/18 [History Confirmed 04/22/18] PMH/Surg Hx/FS Hx/Imm Hx GI/ History: Ulcer Neurological History: Migraine - Surgical History Surgical History: Yes Surgery Procedure, Year, and Place: Tonsillectomy, 2007, [facility] Dr. Kelley. Partial Discectomy L4 L5, 2008, [place]. Partial Discectomy L4 L5, 2009, [facility] [place] Dr. Leon. , 10/05/13, [facility] [place]. discectomy --2014. lap cholecystectomy 2014 - Family History Known Family History: Positive: Cardiac Disease, Hypertension, Diabetes, Other - father with migraines/no hx DVT or PE Family History: father with migraines/no hx DVT or PE - Social History Occupation: Employed Full-time Lives: Alone Alcohol Use: Occasionally Alcohol Amount: "a couple ... maybe once a month" Substance Use Type: None Smoking Status (MU): Light Every Day Tobacco Smoker Type: Cigarettes Amount Used/How Often: 3 CIGS PER DAY Length of Time of Smoking/Using Tobacco: 3 YRS Have You Smoked in the Last Year: Yes Household Exposure Type: Cigarettes - Immunization History Most Recent Influenza Vaccination: no Review of Systems Eyes: Drainage, Other - eyelid swelling Neurological: Headache - migraine right frontal last 4 days has resolved. Is Patient Immunocompromised?: No All Other Systems Reviewed And Are Negative: Yes Physical Exam Triage Information Reviewed: Yes Appearance: Well-Appearing, No Pain Distress, Obese Vital Signs: Initial Vital Signs Temp 97.4 F 04/22/18 14:12 Pulse 72 04/22/18 14:12 Resp 16 04/22/18 14:12 BP 114/66 04/22/18 14:12 Pulse Ox 100 04/22/18 14:12 Vital Signs Reviewed: Yes Eyes: Positive: Conjunctiva Clear, Other: - right upper lateral lid swollen, red and tender ENT: Positive: Pharynx normal, Nasal congestion - with allergic changes., TMs normal Neck exam: Normal Respiratory Exam: Normal Cardiovascular Exam: Normal Musculoskeletal Exam: Normal Neurological Exam: Normal Psychological Exam: Normal Skin Exam: Normal Eye Complaint Course/Dx - Differential Dx/Diagnosis Differential Diagnosis/HQI/PQRI: Conjunctivitis, Keratitis, Periorbital Cellulitis Provider Diagnoses: Right upper lid external hordoleum Discharge - Sign-Out/Discharge Documenting (check all that apply): Patient Departure All imaging exams completed and their final reports reviewed: No Studies - Discharge Plan Condition: Stable Disposition: HOME Prescriptions: Erythromycin OPTH OINT* [Erythromycin 0.5% OPTH OINT*] 0.25 inch RIGHT EYE TID # 3.5 gm Patient Education Materials: Hope (ED), Erythromycin (Into the eye) Referrals: Clayton Alvarenga MD [Primary Care Provider] - Additional Instructions: EYE OINTMENT USE: Wash hands. Place 1/4" strip across tip of finger. Pull lower lid down with the index finger and stabilize the ointment finger with the middle finger and scrape the ointment off on the lid. Pull the lid out and let go as you look down. NEILMED SINUS RINSE: CHECK OUT AT [facility] Saline nasal wash helps with mucous, allergies and congestion. It can be used up to twice a day or only as needed. Use lukewarm tap water. It does not have to be sterilized or distilled water. Do 1/3 on each side and snort out of both nostrils. Repeat the process with 1/6 of the bottle on each side with snorting in between to finish the solution in the bottle - Billing Disposition and Condition Condition: STABLE Disposition: Home
== END 2018-04-22 15:28 | disposition home or self-care (01) ==
LOC: UCCORT 13:55
DX: H00.011 Hordeolum externum right upper eyelid (principal); F17.210 Nicotine dependence, cigarettes, uncomplicated
CPT/HCPCS: 99212; G0463

== ENCOUNTER 2018-05-09 11:27 | Emergency (ER) | payer BC ==
[2018-05-09 11:43] VITALS: BP 120/73
--- NOTE | 2018-05-09 12:13 | UC ---
Respiratory Complaint HPI - HPI Summary HPI Summary: 27-year-old woman who comes to clinic today with a complaint of cough and chest congestion shortness of breath wheezing and green sputum. This all started about a week and half ago with runny nose and some nasal congestion. His now moved down into her chest. She is bringing up sputum with her cough and blood blowing her nose she gets rhinorrhea. No complaint of any chest pain. She is a smoker. - History of Current Complaint Chief Complaint: UCRespiratory Stated Complaint: CONGESTION COUGH Time Seen by Provider: 05/09/18 12:02 Hx Last Menstrual Period: 05/05/18 Pain Intensity: 7 - Allergies/Home Medications Allergies/Adverse Reactions: Allergies Allergy/AdvReac Type Severity Reaction Status Date / Time No Known Allergies Allergy Verified 05/01/18 12:03 Home Medications: Home Medications Gabapentin CAP(*) [Neurontin 100 mg CAP(*)] 100 mg PO BID 05/09/18 [History Confirmed 05/09/18] Meloxicam 5 mg PO ONCE 05/09/18 [History Confirmed 05/09/18] PMH/Surg Hx/FS Hx/Imm Hx Previously Healthy: Yes - chronic low back pain - Surgical History Surgical History: Yes Surgery Procedure, Year, and Place: Tonsillectomy, 2007, [facility] Dr. Kelley. Partial Discectomy L4 L5, 2008, [place]. Partial Discectomy L4 L5, [place], [facility] [place]. , 10/05/[place] [facility] [place] discectomy --2014. lap cholecystectomy 2014 - Family History Known Family History: Positive: Cardiac Disease, Hypertension, Diabetes, Other - father with migraines/no hx DVT or PE Family History: father with migraines/no hx DVT or PE - Social History Alcohol Use: Occasionally Alcohol Amount: "a couple ... maybe once a month" Substance Use Type: None Smoking Status (MU): Light Every Day Tobacco Smoker Type: Cigarettes Amount Used/How Often: 5 CIGS PER DAY Length of Time of Smoking/Using Tobacco: 3 YRS Have You Smoked in the Last Year: Yes Household Exposure Type: Cigarettes - Immunization History Most Recent Influenza Vaccination: no Review of Systems Constitutional: Chills Skin: Negative Eyes: Negative ENT: Sore Throat, Nasal Discharge, Sinus Congestion, Sinus Pain/Tenderness Respiratory: Shortness Of Breath, Cough, Other - WHEEZING Cardiovascular: Negative Gastrointestinal: Negative Motor: Negative Neurovascular: Negative Musculoskeletal: Negative Neurological: Negative Psychological: Negative Is Patient Immunocompromised?: No All Other Systems Reviewed And Are Negative: Yes Physical Exam Triage Information Reviewed: Yes Appearance: No Pain Distress, Well-Nourished, Ill-Appearing - MILD Vital Signs: Initial Vital Signs Temp 98.6 F 05/09/18 11:34 Pulse 73 05/09/18 11:34 Resp 17 05/09/18 11:34 BP 120/73 05/09/18 11:34 Pulse Ox 98 05/09/18 11:34 Vital Signs Reviewed: Yes Eye Exam: Normal Eyes: Positive: Conjunctiva Clear ENT: Positive: Pharyngeal erythema, Nasal congestion, Nasal drainage. Negative : Muffled voice Neck exam: Normal Neck: Positive: Supple Respiratory: Positive: Lungs clear, Normal breath sounds, Rhonchi Cardiovascular: Positive: RRR Musculoskeletal Exam: Normal Musculoskeletal: Positive: Strength Intact, ROM Intact, No Edema Neurological Exam: Normal Neurological: Positive: Alert Psychological Exam: Normal Skin Exam: Normal UC Diagnostic Evaluation - Laboratory O2 Sat by Pulse Oximetry: 98 Respiratory Course/Dx - Course Course Of Treatment: Patient has been ill for over 10 days she is a smoker. Prescription will be azithromycin and an albuterol inhaler. We discussed that if she gets worse she should get a reevaluation in the emergency department. Otherwise she follows up with her primary medical doctor. - Differential Dx/Diagnosis Provider Diagnoses: Bronchitis with bronchospasm Discharge - Sign-Out/Discharge Documenting (check all that apply): Patient Departure All imaging exams completed and their final reports reviewed: No Studies - Discharge Plan Condition: Stable Disposition: HOME Prescriptions: Albuterol HFA INHALER* [Ventolin HFA Inhaler*] 2 puff INH Q4H PRN #1 mdi PRN Reason: Wheezing Azithromyxin EDDIE (NF) [Z-Eddie (Zithromax) 250 mg tabs #6] 2 tab PO .TODAY, THEN 1 DAILY #6 tab Patient Education Materials: Acute Bronchitis (ED), Bronchospasm (ED), Wheezing (ED) Referrals: Clayton Alvarenag MD [Primary Care Provider] - Additional Instructions: FOLLOW UP WITH YOUR DOCTOR IF NOT COMPLETELY IMPROVED. GO TO THE EMERGENCY DEPARTMENT FOR ANY WORSENING OF YOUR CONDITION; SHORTNESS OF BREATH, YOU FEEL ILL OR QUESTIONS OR CONCERNS. - Billing Disposition and Condition Condition: STABLE Disposition: Home - Attestation Statements Document Initiated by Scribe: No
== END 2018-05-09 12:19 | disposition home or self-care (01) ==
LOC: UCCORT 11:27
DX: J20.9 Acute bronchitis, unspecified (principal); F17.210 Nicotine dependence, cigarettes, uncomplicated
CPT/HCPCS: 99212; G0463

== ENCOUNTER 2018-06-22 11:55 | Emergency (ER) | payer BC, OTHER ==
[2018-06-22 12:18] VITALS: BP 126/78
--- NOTE | 2018-06-22 13:35 | UC ---
Shoulder Pain HPI - HPI Summary HPI Summary: 3 days of L shoulder and L sided neck pain. Woke up that way. denies tingling/ numbness in L extremity. denies any injury or fall. R HANDED. - History of Current Complaint Chief Complaint: UCUpperExtremity Stated Complaint: SHOULDER AND NECK PAIN Time Seen by Provider: 06/22/18 13:12 Hx Obtained From: Patient Hx Last Menstrual Period: 06/09/18 ?: No - nexplanon Onset/Duration: Sudden Onset Timing: Constant Severity Initially: Mild Pain Intensity: 8 Pain Scale Used: 0-10 Numeric Character: Dull, Aching Aggravating Factor(s): Movement Alleviating Factor(s): Rest Associated Signs And Symptoms: Positive: Negative - Risk Factors Non-Orthopedic Risk Factor: Negative - Allergies/Home Medications Allergies/Adverse Reactions: Allergies Allergy/AdvReac Type Severity Reaction Status Date / Time No Known Allergies Allergy Verified 06/22/18 12:18 PMH/Surg Hx/FS Hx/Imm Hx Previously Healthy: Yes - Surgical History Surgical History: Yes Surgery Procedure, Year, and Place: Tonsillectomy, 2007, [facility] Dr. Kelley. Partial Discectomy L4 L5, 2008, [place]. Partial Discectomy L4 L5, 2009, [facility] [place] Dr. Leon. , 10/05/13, [facility] [place]. discectomy --2014. lap cholecystectomy 2014 - Family History Known Family History: Positive: Cardiac Disease, Hypertension, Diabetes, Other - father with migraines/no hx DVT or PE Family History: father with migraines/no hx DVT or PE - Social History Alcohol Use: Occasionally Alcohol Amount: "a couple ... maybe once a month" Substance Use Type: None Smoking Status (MU): Light Every Day Tobacco Smoker Type: Cigarettes Amount Used/How Often: 5 CIGS PER DAY Length of Time of Smoking/Using Tobacco: 3 YRS Have You Smoked in the Last Year: Yes Household Exposure Type: Cigarettes - Immunization History Most Recent Influenza Vaccination: no Review of Systems All Other Systems Reviewed And Are Negative: Yes Constitutional: Positive: Negative Respiratory: Positive: Negative Cardiovascular: Positive: Negative Musculoskeletal: Positive: Other: - neck and shoulder stiffness Neurological: Positive: Negative Is Patient Immunocompromised?: No Physical Exam Triage Information Reviewed: Yes Appearance: Well-Appearing Vital Signs: Initial Vital Signs Temp 98.6 F 06/22/18 12:15 Pulse 85 11/08/18 12:15 Resp 18 06/22/18 12:15 BP 126/78 06/22/18 12:15 Pulse Ox 99 06/22/18 12:15 Vital Signs Reviewed: Yes Musculoskeletal: Positive: Strength Intact - at neck and L shoulder, ROM Intact - at neck and L shoulder., No Edema, Other: - some mild tenderness at upper L muscles of the back. neg. lift off test. Neurological: Positive: Alert, Muscle Tone Normal Shoulder Course/Dx - Course Assessment/Plan: L shoulder pain from neck stiffness. recommend incr. movement and massage. short term muscle relaxer. no neuro deficits. - Differential Dx/Diagnosis Differential Diagnosis/HQI/PQRI: Bursitis, Rotator Cuff Injury, Sprain, Strain Provider Diagnoses: L shoulder pain Discharge - Sign-Out/Discharge Documenting (check all that apply): Patient Departure All imaging exams completed and their final reports reviewed: No Studies - Discharge Plan Condition: Good Disposition: HOME Prescriptions: Cyclobenzaprine (NF) [Cyclobenzaprine 5 MG (NF)] 5 mg PO TID PRN #9 tab PRN Reason: Pain Patient Education Materials: Shoulder Sprain (ED) Forms: *Work Release Referrals: Clayton Alvarenga MD [Primary Care Provider] - Additional Instructions: This is a muscular injury and should resolve on its own with massage and increased movement. Then neck and shoulder muscles are connected so doing the neck and shoulder movement/exercises we discussed should help. - Billing Disposition and Condition Condition: GOOD Disposition: Home
== END 2018-06-22 13:46 | disposition home or self-care (01) ==
LOC: UCEAST 11:55
DX: M25.512 Pain in left shoulder (principal); M54.2 Cervicalgia; F17.210 Nicotine dependence, cigarettes, uncomplicated
CPT/HCPCS: 99212; G0463

== ENCOUNTER 2018-07-18 09:47 | Emergency (ER) | payer BC ==
[2018-07-18 09:54] VITALS: BP 123/74
--- NOTE | 2018-07-18 10:44 | ED ---
Neck Pain - HPI Summary HPI Summary: Patient is a 39-year-old male who presents emergency department for ongoing left sided neck and shoulder pain 1 month. 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 Patient denies any recent injuries. She was seen at urgent care about a month ago and prescribed muscle relaxers. She notes trying ibuprofen with minimal relief. Patient notes her boss wanted her to get checked out and ongoing pain. She denies numbness, tingling or weakness in arms. She denies fever. She has no past medical history. Symptoms are mild in severity. Movement makes symptoms worse. Nothing makes symptoms better. - History of Current Complaint Chief Complaint: EDExtremityUpper Stated Complaint: NECK AND SHOULDER PAIN Time Seen by Provider: 07/18/18 10:19 Hx Obtained From: Patient Hx Last Menstrual Period: 06/09/18 Pain Intensity: 9 - Allergies/Home Medications Allergies/Adverse Reactions: Allergies Allergy/AdvReac Type Severity Reaction Status Date / Time No Known Allergies Allergy Verified 06/28/18 12:57 PMH/Surg Hx/FS Hx/Imm Hx Previously Healthy: Yes Endocrine/Hematology History: Denies: Hx Diabetes, Hx Thyroid Disease Cardiovascular History: Denies: Hx Hypertension, Hx Pacemaker/ICD, Other Cardiovascular Problems/ Disorders Respiratory History: Denies: Hx Asthma, Hx Chronic Obstructive Pulmonary Disease (COPD) GI History: Reports: Hx Gall Bladder Disease, Hx Ulcer - stomach ulcers History: Reports: Hx Kidney Infection - 6 YEARS AGO Denies: Hx Renal Disease Musculoskeletal History: Reports: Hx Back Problems Sensory History: Reports: Hx Contacts or Glasses Denies: Hx Hearing Aid Opthamlomology History: Reports: Hx Contacts or Glasses Neurological History: Reports: Hx Headaches, Hx Migraine, Other Neuro Impairments/Disorders - PAIN CLINIC PATIENT Psychiatric History: Denies: Hx Panic Disorder - Surgical History Surgery Procedure, Year, and Place: Tonsillectomy, 2007, [facility] Dr. Kelley. Partial Discectomy L4 L5, 2008, [place]. Partial Discectomy L4 L5, 2009, [facility] [place] Dr. Leon. , 10/05/13, [facility] [place]. discectomy --2014. lap cholecystectomy 2014 Hx Anesthesia Reactions: No - Immunization History Date of Tetanus Vaccine: UP TO DATE Date of Influenza Vaccine: NONE Infectious Disease History: No Infectious Disease History: Denies: Hx Clostridium Difficile, Hx Hepatitis, Hx Human Immunodeficiency Virus (HIV), Hx of Known/Suspected MRSA, Hx Shingles, Hx Tuberculosis, Hx Known/ Suspected VRE, Hx Known/Suspected VRSA, History Other Infectious Disease, Traveled Outside the [place] in Last 30 Days - Family History Known Family History: Positive: Cardiac Disease, Hypertension, Diabetes, Other - father with migraines/no hx DVT or PE Family History: father with migraines/no hx DVT or PE - Social History Occupation: Employed Full-time Lives: With Family Alcohol Use: Weekly Alcohol Amount: 2 Substance Use Type: Reports: None Smoking Status (MU): Light Every Day Tobacco Smoker Type: Cigarettes Amount Used/How Often: 5 CIGS PER DAY Length of Time of Smoking/Using Tobacco: 3 YRS Have You Smoked in the Last Year: Yes Review of Systems Positive: Other - Left side neck and shoulder pain Skin: Negative Negative: Weakness, Paresthesia, Numbness All Other Systems Reviewed And Are Negative: Yes Physical Exam Triage Information Reviewed: Yes Vital Signs On Initial Exam: Initial Vitals Temp Pulse Resp BP Pulse Ox 98.4 F 70 16 123/74 100 07/18/18 09:51 07/18/18 09:51 07/18/18 09:51 07/18/18 09:51 07/18/18 09:51 Vital Signs Reviewed: Yes Appearance: Positive: Well-Appearing - Pt. lyingin bed in NAD. Skin: Positive: Warm, Dry Head/Face: Positive: Normal Head/Face Inspection Eyes: Positive: Normal, EOMI, Conjunctiva Clear Neck: Positive: Supple, Other: - No midline tenderness. Pain and tightening of the left trapezius muslce. Full ROM of left shoulder with mild pain. 5/5 strength in arm and good pulse Musculoskeletal: Positive: Normal, Strength/ROM Intact, Other - No midline tenderness. Pain and tightening of the left trapezius muslce. Full ROM of left shoulder with mild pain. 5/5 strength in arm and good pulse Neurological: Positive: Normal, CN Intact II-III Diagnostics - Vital Signs Vital Signs Temp Pulse Resp BP Pulse Ox 07/18/18 09:51 98.4 F 70 16 123/74 100 - Laboratory Lab Statement: Any lab studies that have been ordered have been reviewed, and results considered in the medical decision making process. Neck Course/Dx - Course Course Of Treatment: Patient presenting for ongoing left-sided neck and shoulder pain. No recent injuries. She has tenderness over left trapezius muscle. No midline tenderness. Advised anti-inflammatories and warm compresses. To avoid heavy lifting. Advised close follow-up with family doctor she can benefit from physical therapy or chiropractor. Work excuse given. We'll return the ER if symptoms change or worsen. Patient understands and agrees with plan. - Diagnoses Provider Diagnoses: Neck pain, Muscle cramp Discharge - Sign-Out/Discharge Documenting (check all that apply): Patient Departure - Discharge Plan Condition: Good Disposition: HOME Patient Education Materials: Cervical Strain (ED), Cervical Strain (DC), Muscle Spasm (ED) Forms: *Work Release Referrals: Clayton Alvarenga MD [Primary Care Provider] - Additional Instructions: Schedule a follow up appointment with your PCP You may benefit from physical therapy or a chiropractor Apply warm compresses Gentle massage Ibuprofin 600-800mg every 8 hours x 1 week Avoid heavy lifting Return to ER if symptoms change or worsen - Billing Disposition and Condition Condition: GOOD Disposition: Home
== END 2018-07-18 11:00 | disposition home or self-care (01) ==
LOC: ED 09:47
DX: M54.2 Cervicalgia (principal); R25.2 Cramp and spasm; F17.210 Nicotine dependence, cigarettes, uncomplicated
CPT/HCPCS: 99281

== ENCOUNTER 2019-06-01 13:07 | Emergency (ER) | payer BC, MEDICAID, OTHER ==
[2019-06-01 13:24] VITALS: BP 123/75
--- NOTE | 2019-06-01 13:25 | UC ---
Skin Complaint HPI - HPI Summary HPI Summary: 29 yo female presents with RIGHT great to pain. She tells me that she cut her toenails a few days ago and since that time has had increasing pain, redness, and swelling to the right great toenail-skin fold. Painful to touch and bear weight. Has not taken anything OTC for her discomfort. Has not been soaking the area. Denies specific injury. - History of Current Complaint Chief Complaint: UCSkin Time Seen by Provider: 06/01/19 13:24 Stated Complaint: TOE PAIN Hx Obtained From: Patient Hx Last Menstrual Period: 05/26 Onset/Duration: Gradual Onset Onset Severity: Moderate Current Severity: Moderate Pain Intensity: 7 Pain Scale Used: 0-10 Numeric - Allergy/Home Medications Allergies/Adverse Reactions: Allergies Allergy/AdvReac Type Severity Reaction Status Date / Time No Known Allergies Allergy Verified 06/01/19 13:23 PMH/Surg Hx/FS Hx/Imm Hx - Additional Past Medical History Additional PMH: None - Surgical History Surgical History: Yes Surgery Procedure, Year, and Place: Tonsillectomy, 2007, [facility] Dr. Kelley. Partial Discectomy L4 L5, 2008, [place]. [place], [place] [facility] [place] , [place] [facility] [place]. lap cholecystectomy 2014 - Family History Known Family History: Positive: Cardiac Disease, Hypertension, Diabetes, Other - father with migraines/no hx DVT or PE Family History: father with migraines/no hx DVT or PE - Social History Occupation: Employed Full-time Lives: With Family Alcohol Use: Occasionally Alcohol Amount: 2 Substance Use Type: None Smoking Status (MU): Light Every Day Tobacco Smoker Type: Cigarettes Amount Used/How Often: 5 CIGS PER DAY Length of Time of Smoking/Using Tobacco: 3 YRS Have You Smoked in the Last Year: Yes Household Exposure Type: Cigarettes - Immunization History Most Recent Influenza Vaccination: no Review of Systems All Other Systems Reviewed And Are Negative: No Constitutional: Positive: Negative Skin: Positive: Other - Right great toe pain Respiratory: Positive: Negative Cardiovascular: Positive: Negative Neurological: Positive: Negative Psychological: Positive: Negative Physical Exam - Summary Physical Exam Summary: GENERAL: NAD. WDWN. No pain distress. SKIN: RIGHT GREAT TOE: At the lateral nail-skin fold of the toenail there is mild erythema and edema with the nail cut very short. No drainage or streaking. CHEST: No accessory muscle use. Breathing comfortably and in no distress. CV: Pulses intact. Cap refill <2seconds NEURO: Alert. PSYCH: Age appropriate behavior. Triage Information Reviewed: Yes Vital Signs: Initial Vital Signs Temp 98.7 F 06/01/19 13:21 Pulse 93 06/01/19 13:21 Resp 16 06/01/19 13:21 BP 123/75 06/01/19 13:21 Pulse Ox 98 06/01/19 13:21 Vital Signs Reviewed: Yes Course/Dx - Course Course Of Treatment: Paronychia right great toe - Diagnoses Provider Diagnosis: Paronychia Discharge ED - Sign-Out/Discharge Documenting (check all that apply): Patient Departure All imaging exams completed and their final reports reviewed: No Studies - Discharge Plan Condition: Stable Disposition: HOME Prescriptions: Cephalexin CAP* [Keflex CAP*] 500 mg PO TID #15 cap Patient Education Materials: Paronychia (ED) Referrals: Clayton Alvarenga MD [Primary Care Provider] - Darius Tom DPM [Doctor of Podiatric Medicine] - If Needed Additional Instructions: If you develop a fever, shortness of breath, chest pain, new or worsening symptoms - please call your PCP or go to the ED immediately. - Billing Disposition and Condition Condition: STABLE Disposition: Home
== END 2019-06-01 13:40 | disposition home or self-care (01) ==
LOC: UCEAST 13:07
DX: L03.031 Cellulitis of right toe (principal); F17.210 Nicotine dependence, cigarettes, uncomplicated
CPT/HCPCS: 99212; G0463

== ENCOUNTER 2019-06-05 09:39 | Emergency (ER) | payer BC ==
--- NOTE | 2019-06-05 09:44 | UC ---
General HPI - HPI Summary HPI Summary: Pleasant 29 yo female c/o pain in midsternal chest since approx 05:30 yesterday am. No sob / palpitations. Recently d/c'd ocp's. + tobacco. No recent fever / chills. No leg pain. No rash (except derm issue seen by [facility]). No fever / chills. No recent illness except mild sinus congestion. Pain does have a pleuritic component, worse with full expiration. No current GI issues, in 2016 had espophageal issues, but not like this. No recent travel. - History of Current Complaint Chief Complaint: ChestPain Stated Complaint: CHEST COMPLAINT Hx Obtained From: Patient Hx Last Menstrual Period: 05/26 - Allergy/Home Medications Allergies/Adverse Reactions: Allergies Allergy/AdvReac Type Severity Reaction Status Date / Time No Known Allergies Allergy Verified 06/05/19 09:50 PMH/Surg Hx/FS Hx/Imm Hx Previously Healthy: Yes - see hpi - Surgical History Surgical History: Yes Surgery Procedure, Year, and Place: Tonsillectomy, 2007, [facility] Dr. Kelley. Partial Discectomy L4 L5, 2008, [place]. [place] [facility] [place] , [place] [facility] [place]. lap cholecystectomy 2014 - Family History Known Family History: Positive: Cardiac Disease, Hypertension, Diabetes, Other - father with migraines/no hx DVT or PE Family History: father with migraines/no hx DVT or PE - Social History Alcohol Use: Occasionally Alcohol Amount: 2 Substance Use Type: None Smoking Status (MU): Light Every Day Tobacco Smoker Type: Cigarettes Amount Used/How Often: 5 CIGS PER DAY Length of Time of Smoking/Using Tobacco: 3 YRS Have You Smoked in the Last Year: Yes Household Exposure Type: Cigarettes - Immunization History Most Recent Influenza Vaccination: no Review of Systems All Other Systems Reviewed And Are Negative: Yes Constitutional: Positive: Other - see hpi Skin: Positive: Other - see hpi Eyes: Positive: Negative ENT: Positive: Negative, Other - see hpi Respiratory: Positive: Other - see hpi Cardiovascular: Positive: Other Gastrointestinal: Positive: Other - see hpi Genitourinary: Positive: Negative Motor: Positive: Negative Neurovascular: Positive: Negative Musculoskeletal: Positive: Negative Neurological: Positive: Negative Psychological: Positive: Negative Is Patient Immunocompromised?: No Physical Exam Triage Information Reviewed: Yes Appearance: Well-Nourished, Other: - sitting up, able to lie back but painful Vital Signs Reviewed: Yes Eye Exam: Normal ENT Exam: Normal Respiratory Exam: Other - BS equal and clear and full. + painful with deep inspiration and deep expiration. No rtx. No adventitious sounds. Cardiovascular Exam: Normal Cardiovascular: Positive: RRR, No Murmur, Pulses Normal, Brisk Capillary Refill Abdominal Exam: Normal Abdomen Description: Positive: Nontender Musculoskeletal Exam: Normal Neurological Exam: Normal Psychological Exam: Normal Skin Exam: Normal - nondiaphoretic Course/Dx - Course Course Of Treatment: Reviewed EKG sr at 73 bpm, no old for comp baseline wande in lead 3 and aVF (?) CXR nad. D/w pt, recommend further eval / tx in ED. She expresses understanding and agreement. Declines EMS. Mom will drive (she called mom to pick her up). Questions as posed answered to the best of my ability. Consider cardiac but doubt, suspect pulm vs musc skl vs gi vis viral etc - Diagnoses Provider Diagnosis: Chest pain Discharge ED - Sign-Out/Discharge Documenting (check all that apply): Patient Departure All imaging exams completed and their final reports reviewed: Yes - Discharge Plan Condition: Guarded Disposition: HOME-RECOMMEND TO ED Patient Education Materials: Chest Pain (ED) Referrals: Clayton Alvarenga MD [Primary Care Provider] - Additional Instructions: Please go to the Emergency Department. Stop and call 911 if [address]. - Billing Disposition and Condition Condition: GUARDED Disposition: Home-Recommend to ED
[2019-06-05 09:50] VITALS: BP 131/76
== END 2019-06-05 11:17 | disposition home health service (06) ==
LOC: UCEAST 09:39
DX: R07.89 Other chest pain (principal); F17.210 Nicotine dependence, cigarettes, uncomplicated
CPT/HCPCS: 71046; 93005; 99211; G0463

== ENCOUNTER 2019-06-05 11:40 | Emergency (ER) | payer BC ==
[2019-06-05 13:49] LABS: ABS Eosinophils 0.2 10^3/ul (0-0.6); ABS Monocytes 0.5 10^3/ul (0-0.8); ABS Neutrophils 2.5 10^3/ul (1.5-7.7); Eosinophil % 3.2 %; Hematocrit 43 % (35-47); Hemoglobin 14.2 g/dL (12.0-16.0); Lymphocyte % 38.9 %; Mean Corpuscular HGB Conc 34 g/dL (31-36); Mean Corpuscular Hemoglobin 30 pg (27-31); Mean Corpuscular Volume 88 fL (80-97); Mean Platelet Volume 6.6 fL (7.4-10.4); Platelet Count 280 10^3/uL (150-450); Red Blood Count 4.82 10^6 /uL (3.70-4.87); Red Cell Distribution Width 14 % (10-15); White Blood Count 5.2 10^3/uL (3.5-10.8)
[2019-06-05 14:06] LABS: ALT 29 U/L (7-52); Albumin 4.9 g/dL (3.2-5.2); Albumin/Globulin Ratio 1.3 (1-3); Alkaline Phosphatase 83 U/L (34-104); BUN/Creatinine Ratio 23.8 (8-20); Blood Urea Nitrogen 15 mg/dL (6-24); CO2 Carbon Dioxide 27 mmol/L (22-32); Calcium 10.3 mg/dL (8.6-10.3); Chloride 102 mmol/L (101-111); EGFR African American 137.2 (>60); EGFR Non-African American 113.4 (>60); Globulin 3.7 g/dL (2-4); Glucose 92 mg/dL (70-100); Sodium 137 mmol/L (135-145); Total Protein 8.6 g/dL (6.4-8.9)
[2019-06-05 14:07] LABS: Troponin I 0.02 ng/mL (<0.04)
--- NOTE | 2019-06-05 14:20 | ED ---
HPI Chest Pain - HPI Summary HPI Summary: Pt is a 29 y/o F presenting to the ED with a chief complaint of chest pain initially onset yesterday at work. She states she was moving to get up when she had a pain in the middle of her chest that has not yet gone away. The pain is worsened with movement and deep breaths. She was diaphoretic at [facility] this morning. She denies SOB, palpitations, LE pain or edema, and nausea. - History of Current Complaint Chief Complaint: EDChestPainROMI Time Seen by Provider: 06/05/19 13:34 Hx Obtained From: Patient Hx Last Menstrual Period: 05/26 Onset/Duration: Started Hours Ago, Still Present Timing: Constant, Lasting Hours Initial Severity: Severe Current Severity: Severe Pain Intensity: 9 Pain Scale Used: 0-10 Numeric Chest Pain Location: Diffuse Chest Pain Radiates: No Aggravating Factor(s): Movement, Deep Breaths Alleviating Factor(s): Nothing Associated Signs and Symptoms: Positive: Chest Pain, Diaphoresis. Negative: Shortness of Breath, Nausea, Palpitations, Calf Pain/Swelling - Allergy/Home Medications Allergies/Adverse Reactions: Allergies Allergy/AdvReac Type Severity Reaction Status Date / Time No Known Allergies Allergy Verified 06/05/19 09:50 Home Medications: Home Medications NK [No Home Medications Reported] 06/05/19 [History Confirmed 06/05/19] PMH/Surg Hx/FS Hx/Imm Hx Previously Healthy: Yes Endocrine/Hematology History: Denies: Hx Diabetes, Hx Thyroid Disease Cardiovascular History: Denies: Hx Hypertension, Hx Pacemaker/ICD, Other Cardiovascular Problems/ Disorders Respiratory History: Denies: Hx Asthma, Hx Chronic Obstructive Pulmonary Disease (COPD) GI History: Reports: Hx Gall Bladder Disease, Hx Ulcer - stomach ulcers History: Reports: Hx Kidney Infection - 6 YEARS AGO Denies: Hx Renal Disease Musculoskeletal History: Reports: Hx Back Problems Sensory History: Reports: Hx Contacts or Glasses Denies: Hx Hearing Aid Opthamlomology History: Reports: Hx Contacts or Glasses Neurological History: Reports: Hx Headaches, Hx Migraine, Other Neuro Impairments/Disorders - PAIN CLINIC PATIENT Psychiatric History: Denies: Hx Panic Disorder - Surgical History Surgery Procedure, Year, and Place: Tonsillectomy, 2007, [facility] Dr. Kelley. Partial Discectomy L4 L5, 2008, [place]. Partial Discectomy L4 L5, 2009, [facility] [place] [place] Dr. Leon. , 10/05/13, [facility] [place] [place]. discectomy --2014. lap cholecystectomy 2014 Hx Anesthesia Reactions: No - Immunization History Date of Tetanus Vaccine: UP TO DATE Date of Influenza Vaccine: NONE Infectious Disease History: No Infectious Disease History: Denies: Hx Clostridium Difficile, Hx Hepatitis, Hx Human Immunodeficiency Virus (HIV), Hx of Known/Suspected MRSA, Hx Shingles, Hx Tuberculosis, Hx Known/ Suspected VRE, Hx Known/Suspected VRSA, History Other Infectious Disease, Traveled Outside the [place] in Last 30 Days - Family History Known Family History: Positive: Cardiac Disease - uncle MD @ 30s, father MD @ 46 , grandfather MD @ 50, Hypertension, Diabetes, Other - father with migraines/no hx DVT or PE Family History: father with migraines/no hx DVT or PE - Social History Alcohol Use: Rare Alcohol Amount: 2 Substance Use Type: Reports: None Smoking Status (MU): Light Every Day Tobacco Smoker Type: Cigarettes Amount Used/How Often: 5 CIGS PER DAY Length of Time of Smoking/Using Tobacco: 3 YRS Have You Smoked in the Last Year: Yes Review of Systems Positive: Skin Diaphoresis Positive: Chest Pain. Negative: Palpitations Negative: Shortness Of Breath Negative: Nausea Negative: Myalgia, Edema All Other Systems Reviewed And Are Negative: Yes Physical Exam - Summary Physical Exam Summary: Constitutional: Well-developed, Well-nourished, Alert. (-) Distressed Skin: Warm, Dry HENT: Normocephalic; Atraumatic Eyes: Conjunctiva normal Neck: Musculoskeletal ROM normal neck. (-) JVD, (-) Stridor, (-) Tracheal deviation Cardio: Rhythm regular, rate normal, Heart sounds normal; Intact distal pulses; Radial pulses are 2+ and symmetric. (-) Murmur Pulmonary/Chest wall: Anterior chest wall tenderness. Effort normal. (-) Respiratory distress, (-) Wheezes, (-) Rales Abd: Soft, (-) tenderness, (-) Distension, (-) Guarding, (-) Rebound Musculoskeletal: (-) Edema Lymph: (-) Cervical adenopathy Neuro: Alert, Oriented x3 Psych: Mood and affect Normal Triage Information Reviewed: Yes Vital Signs On Initial Exam: Initial Vitals Temp Pulse Resp BP Pulse Ox 98.5 F 71 20 118/76 98 06/05/19 11:56 06/05/19 11:56 06/05/19 11:56 06/05/19 11:56 06/05/19 11:56 Vital Signs Reviewed: Yes Procedures - Sedation Patient Received Moderate/Deep Sedation with Procedure: No Diagnostics - Vital Signs Vital Signs Temp Pulse Resp BP Pulse Ox 06/05/19 13:00 98 F 73 18 121/79 99 06/05/19 11:56 98.5 F 71 20 118/76 98 - Laboratory Lab Results: Lab Results 06/05/19 06/05/19 Range/Units 13:38 13:38 WBC 5.2 (3.5-10.8) 10^3/uL RBC 4.82 (3.70-4.87) 10^6 /uL Hgb 14.2 (12.0-16.0) g/dL Hct 43 (35-47) % MCV 88 (80-97) fL MCH 30 (27-31) pg MCHC 34 (31-36) g/dL RDW 14 (10-15) % Plt Count 280 (150-450) 10^3/uL MPV 6.6 L (7.4-10.4) fL Neut % (Auto) 47.9 % Lymph % (Auto) 38.9 % [place] % (Auto) 9.2 % Eos % (Auto) 3.2 % Baso % (Auto) 0.8 % Absolute Neuts (auto) 2.5 (1.5-7.7) 10^3/ul Absolute Lymphs (auto) 2.0 (1.0-4.8) 10^3/ul Absolute Monos (auto) 0.5 (0-0.8) 10^3/ul Absolute Eos (auto) 0.2 (0-0.6) 10^3/ul Absolute Basos (auto) 0.0 (0-0.2) 10^3/ul Absolute Nucleated RBC 0.0 10^3/ul Nucleated RBC % 0.0 Sodium 137 (135-145) mmol/L Potassium Pending Chloride 102 (101-111) mmol/L Carbon Dioxide 27 (22-32) mmol/L Anion Gap Pending BUN 15 (6-24) mg/dL Creatinine 0.63 (0.51-0.95) mg/dL Est GFR ( Amer) 137.2 (>60) Est GFR (Non-Af Amer) 113.4 (>60) BUN/Creatinine Ratio 23.8 H (8-20) Glucose 92 (70-100) mg/dL Calcium 10.3 (8.6-10.3) mg/dL Total Bilirubin 0.30 (0.2-1.0) mg/dL AST Pending ALT 29 (7-52) U/L Alkaline Phosphatase 83 (34-104) U/L Troponin I 0.02 (<0.04) ng/mL Total Protein 8.6 (6.4-8.9) g/dL Albumin 4.9 (3.2-5.2) g/dL Globulin 3.7 (2-4) g/dL Albumin/Globulin Ratio 1.3 (1-3) Beta HCG, Quant Pending Result Diagrams: 06/05/19 13:38 06/05/19 13:38 Lab Statement: Any lab studies that have been ordered have been reviewed, and results considered in the medical decision making process. - Radiology CXR Radiology Interpretation Completed By: Radiologist Summary of Radiographic Findings: No active cardiopulmonary disease. ED physician has reviewed this report. - EKG 1140 Cardiac Rate: Other Rate - sinus arrythmia 70bpm ST Segment: Normal Ectopy: None Summary of EKG Findings: EKG at 1140 shows sinus arrhythmia at 70bpm with no STEMI. ED physician has reviewed and interpreted this report. Chest Pain Course/Dx - Course Course Of Treatment: Patient is here with anterior chest pain is worse with movement. Patient does have point tenderness on her physical exam. Patient has a risk factor of multiple people with early ACS in her family. Patient had an EKG that showed no evidence of ischemia. Patient had negative troponin. Patient had 24 hours of straight pain so her troponin should be positive if this is a serious nature. Patient is perk negative with a well score of 0. Patient had negative chest XR. Patient is discharged with Motrin - Diagnoses Provider Diagnoses: Costochondritis Discharge ED - Sign-Out/Discharge Documenting (check all that apply): Patient Departure - Discharge Plan Condition: Stable Disposition: HOME Patient Education Materials: Costochondritis (ED) Forms: *Work Release Referrals: Clayton Alvarenga MD [Primary Care Provider] - Additional Instructions: Take 600mg of Ibuprofen every 6 hours for your pain. Use heating pads on your chest wall to alleviate the pain. Follow up with your primary care provider within the next 1-3 days. - Billing Disposition and Condition Condition: STABLE Disposition: Home - Attestation Statements Document Initiated by Dl: Yes Documenting Scribe: Estrella Herrera Provider For Whom Dl is Documenting (Include Credential): Gianluca Jose MD. Scribe Attestation: Estrella Moses, scribed for Gianluca Jose MD. on 06/05/19 at 1913. Scribe Documentation Reviewed: Yes Provider Attestation: The documentation as recorded by the Estrella quinonez accurately reflects the service I personally performed and the decisions made by , Gianluca Jose MD. Status of Scribe Document: Viewed
[2019-06-05 14:25] LABS: HCG Pregnancy < 0.60 mIU/mL
[2019-06-05] MEDS ORDERED: Ibuprofen TAB* 600 MG PO ONE (14:25)
[2019-06-05 14:41] VITALS: BP 114/72
[2019-06-05 14:47] LABS: Anion Gap 8 mmol/L (2-11); Potassium 3.9 mmol/L (3.5-5.0)
[2019-06-05 14:52] LABS: AST 21 U/L (13-39)
== END 2019-06-05 14:30 | disposition home or self-care (01) ==
LOC: ED 11:40
DX: M94.0 Chondrocostal junction syndrome [Tietze] (principal); R07.9 Chest pain, unspecified; R51 Headache; F17.210 Nicotine dependence, cigarettes, uncomplicated
CPT/HCPCS: 36415; 71046; 80053; 84484; 84702; 85025; 93005; 99283; A9270-GY

== ENCOUNTER 2019-08-10 13:21 | Emergency (ER) | payer BC ==
--- OUTSIDE RECORDS SUMMARY | 2019-08-10 13:32 | XMS REPORT | Continuity of Care Document ---
:1990 Author Organization [facility] Care Team Providers Name Role Phone IRINA MONZON Admitting Physician IRINA MONZON Attending Physician UNKNOWN, UNKNOWN Primary Care Physician Unavailable Allergies and Intolerances No Allergy Data in the System Medications RxNorm Medication Dose Route Instructions Start Date End Date Status 576337 Azithromycin 250 MG 250 mg oral orally every 24 Active Oral Tablet hours (500 mg x 1 day, then 250 mg x 4 days) 863933 Prednisone 50 MG 50 mg oral orally daily (One Active Oral Tablet tablet daily) Medications At Time Of Discharge RxNorm Medication Dose Route Instructions Start Date End Date Status 666215 Azithromycin 250 MG 250 mg oral orally every 24 Active Oral Tablet hours (500 mg x 1 day, then 250 mg x 4 days) 031737 Prednisone 50 MG 50 mg oral orally daily (One Active Oral Tablet tablet daily) Problems No Data in the system Procedures Code Code System Procedure Date 53110294 SNOMED CT section U 05811232 [address] Tonsillectomy and adenoidectomy U 20005172 SNOMED CT Cholecystectomy U back surgery U Results No data in the system Social History Code Code System Social History Observation Description Dates Observed 289439874 SNOMED CT Current Smoking Status Never smoker UNK AdministrativeGender Sex Assigned At Unknown Vital Signs Code Code System Vitals Value Date 8310-5 LOINC Body Temperature 99.2 [degF] 07/20/2019 8865-8 LOINC Pulse Rate 96 {beats}/min 07/20/2019 9279-1 LOINC Respiratory Rate 18 /min 07/20/2019 44265-3 LOINC O2% BldC Oximetry 97 % 07/20/2019 8480-6 LOINC BP Systolic 152 mm[Hg] 07/20/2019 8462-4 LOINC BP Diastolic 86 mm[Hg] 07/20/2019 8302-2 LOINC Height 71 [in_i] 07/20/2019 33949-7 LOINC Weight 109.09 kg 07/20/2019 3140-1 LOINC Body surface area Derived from formula 2.28 m2 07/20/2019 78528-7 LOINC BMI (Body Mass Index) 33.6 kg/m2 07/20/2019 Goals Section No data in the system Health Concerns No data in the systemEncounter Diagnosis Date Code Code System Diagnosis Status J20.9 ICD10 ACUTE BRONCHITIS UNSPECIFIED Active Advance Directives [facility] Directive Type Effective Date [employer] Notes Supporting Document Name Address Phone No Directive 07/20/2019 Not Specified Not Specified Not Specified Juanita No Type specified 12:37:00 PM Felicia lee - [phone] *RHIO - CONSENT IS NO Directive Type Effective Date [employer] Notes Supporting Document Name Address Phone No Directive Type 07/20/2019 Not Specified Not Specified Not Specified None No specified 12:28:30 PM Encounters Encounter Diagnosis Location Date ACUTE BRONCHITIS UNSPECIFIED [facility] 07/20/2019 Family History No Significant Family History Functional Status Code Functional Condition Code System Date Status Obese SNOMED CT 07/20/2019 Active Independent adls SNOMED CT 07/20/2019 Active Appears well nourished/hydrated SNOMED CT 07/20/2019 Active Immunizations No data in the system Medical Equipment No data in the system Mental Status Code Cognitive Condition Code System Date Status Perrl SNOMED CT 07/20/2019 Active Oriented x [address] 07/20/2019 Active No acute distress SNOMED CT 07/20/[address] 07/20/2019 Active Assessment and Plan Assessments No data in the systemPlan Of Treatment No data in the systemPending Tests No data in the system Hospital Discharge Instructions No data in the system Reason for Visit Reason for Visit Upper Respiratory Tract Sx
[2019-08-10 13:41] VITALS: BP 117/57
--- NOTE | 2019-08-10 14:42 | UC ---
Respiratory Complaint HPI - HPI Summary HPI Summary: 29-year-old female presents with complaints of a persistent cough. States she was seen at another urgent care center approximately 3 weeks ago and diagnosed with bronchitis. She completed a course of azithromycin and prednisone and has had improvement in her symptoms with the exception of the persistent cough. States cough is nonproductive and tends to be worse at night. Denies fever, chills, nasal congestion, ear pain, sore throat, chest pain, or shortness of breath. - History of Current Complaint Chief Complaint: UCRespiratory Stated Complaint: CONGESTION Time Seen by Provider: 08/10/19 14:14 Hx Obtained From: Patient Hx Last Menstrual Period: 05/26 Pain Intensity: 5 - Allergies/Home Medications Allergies/Adverse Reactions: Allergies Allergy/AdvReac Type Severity Reaction Status Date / Time No Known Allergies Allergy Verified 08/10/19 13:41 PMH/Surg Hx/FS Hx/Imm Hx Previously Healthy: Yes - Denies significant PMH - Surgical History Surgical History: Yes Surgery Procedure, Year, and Place: Tonsillectomy, 2007, [facility] Kelley. Partial Discectomy L4 L5, 2008, [place]. Partial Discectomy L4 L5, 2009, [facility] [place] Dr. Leon. , 10/05/13, [facility] [place]. discectomy --2014. lap cholecystectomy 2014 - Family History Known Family History: Positive: Cardiac Disease - uncle [place] @ 30s, father [place] @ 46 , grandfather [place] @ 50, Hypertension, Diabetes, Other - father with migraines/no hx DVT or PE Family History: father with migraines/no hx DVT or PE - Social History Occupation: Employed Full-time Lives: With Family Alcohol Use: Occasionally Alcohol Amount: 2 Substance Use Type: None Smoking Status (MU): Light Every Day Tobacco Smoker Type: Cigarettes Amount Used/How Often: 5 CIGS PER DAY Length of Time of Smoking/Using Tobacco: 3 YRS Have You Smoked in the Last Year: Yes Household Exposure Type: Cigarettes - Immunization History Most Recent Influenza Vaccination: no Review of Systems All Other Systems Reviewed And Are Negative: Yes Constitutional: Negative: Fever, Chills ENT: Negative: Sore Throat, Ear Ache, Nasal Discharge, Sinus Congestion, Sinus Pain/Tenderness Respiratory: Positive: Cough. Negative: Shortness Of Breath Cardiovascular: Negative: Palpitations, Chest Pain Gastrointestinal: Positive: Negative Genitourinary: Positive: Negative Musculoskeletal: Positive: Negative Neurological: Positive: Negative Is Patient Immunocompromised?: No Physical Exam - Summary Physical Exam Summary: GENERAL APPEARANCE: Well developed, well nourished, alert and cooperative, and appears to be in no acute distress. EYES: Conjunctiva clear. No drainage. EARS: External auditory canals and tympanic membranes clear, hearing grossly intact. NOSE: No nasal discharge. THROAT: Pharynx normal No tonsilar inflammation, swelling, exudate, or lesions. Uvula midline. Oral cavity normal. Teeth and gingiva in good general condition. NECK: Neck supple, non-tender without lymphadenopathy. CARDIAC: Normal S1 and S2. No S3, S4 or murmurs. Rhythm is regular. There is no peripheral edema, cyanosis or pallor. Extremities are warm and well perfused. Capillary refill is less than 2 seconds. Peripheral pulses intact. LUNGS: Clear to auscultation without rales, rhonchi, wheezing or diminished breath sounds. Non-productive cough. ABDOMEN: Positive bowel sounds. Soft, nondistended, nontender. No guarding or rebound. No masses or hepatosplenomegally. MUSKULOSKELETAL: ROM intact to all extremities. No joint erythema or tenderness. Normal muscular development. Normal gait. SKIN: Skin normal color, texture and turgor with no lesions or eruptions. Triage Information Reviewed: Yes Vital Signs: Initial Vital Signs Temp 97.7 F 08/10/19 13:38 Pulse 84 08/10/19 13:38 Resp 14 08/10/19 13:38 BP 117/57 08/10/19 13:38 Pulse Ox 99 08/10/19 13:38 Vital Signs Reviewed: Yes Respiratory Course/Dx - Course Course Of Treatment: 29-year-old female presents with complaints of a persistent cough. States she was seen at another urgent care center approximately 3 weeks ago and diagnosed with bronchitis. She completed a course of azithromycin and prednisone and has had improvement in her symptoms with the exception of the persistent cough. States cough is nonproductive and tends to be worse at night. Denies fever, chills, nasal congestion, ear pain, sore throat, chest pain, or shortness of breath. Afebrile. Vital signs stable. Patient's exam was overall unremarkable except for a nonproductive cough. Discussed with the patient that the cough after acute bronchitis can often linger and with no fever and clear breath sounds would not recommend additional antibiotics at this time. We'll provide her with a prescription for Tessalon Perles 1 capsule every 8 hours as needed for cough. She is to follow-up with her primary care provider in 3-5 days if symptoms are not improving. Anticipatory guidance warning symptoms were reviewed with the patient. Verbalizes understanding and agrees with plan of care. - Differential Dx/Diagnosis Differential Diagnosis/HQI/PQRI: Bronchitis, Influenza, Lower Resp Infection, Sinusitis, Other - URI Provider Diagnosis: Bronchitis Discharge ED - Sign-Out/Discharge Documenting (check all that apply): Patient Departure All imaging exams completed and their final reports reviewed: No Studies - Discharge Plan Condition: Stable Disposition: HOME Prescriptions: Benzonatate CAP* [Tessalon 100 MG CAP*] 100 mg PO TID PRN #[id number] cap PRN Reason: Cough Patient Education Materials: Acute Bronchitis (ED) Referrals: Clayton Alvarenga MD [Primary Care Provider] - 3 Days (If no improvement in symptoms.) Additional Instructions: Your history and exam are consistent with acute bronchitis. Be aware that the cough with bronchitis may persist for 2-3 weeks even if other symptoms have improved. Get plenty of rest. Drink plenty of fluids. Run a cool mist humidifer in your room at night. Take over the counter acetaminophen (Tylenol) or ibuprofen (Advil, Motrin) according to directions as needed for pain or fever. Take Tessalon Perles 1 cap every 8 hours as needed for cough. Follow up with your primary care provider in 3-5 days if symptoms do not improve. Seek immediate medical attention in the emergency room if you have fever greater than 100.5 F despite taking acetaminophen or ibuprofen, have chest pain , difficulty breathing, or have any worsening of symptoms. - Billing Disposition and Condition Condition: STABLE Disposition: Home
== END 2019-08-10 15:07 | disposition home or self-care (01) ==
LOC: UCCORT 13:21
DX: J40 Bronchitis, not specified as acute or chronic (principal); F17.210 Nicotine dependence, cigarettes, uncomplicated
CPT/HCPCS: 99212; G0463

== ENCOUNTER 2019-08-20 11:45 | Emergency (ER) | payer BC ==
[2019-08-20 11:54] VITALS: BP 115/69
--- NOTE | 2019-08-20 12:03 | UC ---
Respiratory Complaint HPI - HPI Summary HPI Summary: The patient is a 29-year-old female who has had a progressively worsening cough 1 month. She is a smoker. She has had to use an inhaler in the past for wheezing. She states that she has been afebrile. She has had chest tightness and wheezing for about a week. Her cough is occasionally productive. - History of Current Complaint Chief Complaint: UCGeneralIllness Stated Complaint: COUGH Time Seen by Provider: 08/20/19 11:56 Hx Obtained From: Patient Hx Last Menstrual Period: 08/19/19 Onset/Duration: Gradual Onset Timing: Constant Severity Initially: Mild Severity Currently: Severe Pain Intensity: 8 - CP while coughing Pain Scale Used: 0-10 Numeric Character: Cough: Nonproductive Aggravating Factors: Nothing Alleviating Factors: Nothing Associated Signs And Symptoms: Positive: Wheezing - Allergies/Home Medications Allergies/Adverse Reactions: Allergies Allergy/AdvReac Type Severity Reaction Status Date / Time No Known Allergies Allergy Verified 08/20/19 11:54 PMH/Surg Hx/FS Hx/Imm Hx Previously Healthy: Yes Respiratory History: Bronchitis, Pneumonia - Surgical History Surgical History: Yes Surgery Procedure, Year, and Place: Tonsillectomy, 2007, [facility] Dr. Kelley. Partial Discectomy L4 L5, 2008, [place]. Partial Discectomy L4 L5, 2009, [facility] Dr. Leon. , 10/05/13, [facility]. discectomy --2014. lap cholecystectomy 2014 - Family History Known Family History: Positive: Cardiac Disease - uncle [place] @ 30s, father [place] @ 46 , grandfather [place] @ 50, Hypertension, Diabetes, Other - father with migraines/no hx DVT or PE Family History: father with migraines/no hx DVT or PE - Social History Alcohol Use: Occasionally Alcohol Amount: 2 Substance Use Type: None Smoking Status (MU): Light Every Day Tobacco Smoker Type: Cigarettes Amount Used/How Often: 5 CIGS PER DAY Length of Time of Smoking/Using Tobacco: 3 YRS Have You Smoked in the Last Year: Yes Household Exposure Type: Cigarettes - Immunization History Most Recent Influenza Vaccination: no Review of Systems All Other Systems Reviewed And Are Negative: Yes Constitutional: Positive: Negative Skin: Positive: Negative Eyes: Positive: Negative ENT: Positive: Negative Respiratory: Positive: Cough, Other - wheezing Cardiovascular: Positive: Negative Gastrointestinal: Positive: Negative Genitourinary: Positive: Negative Motor: Positive: Negative Neurovascular: Positive: Negative Musculoskeletal: Positive: Negative Neurological: Positive: Negative Psychological: Positive: Negative Physical Exam Triage Information Reviewed: Yes Appearance: Well-Appearing, No Pain Distress, Well-Nourished Vital Signs: Initial Vital Signs Temp 98.8 F 08/20/19 11:51 Pulse 79 08/20/19 11:51 Resp 17 08/20/19 11:51 BP 115/69 08/20/19 11:51 Pulse Ox 100 08/20/19 11:51 Vital Signs Reviewed: Yes Eyes: Positive: Conjunctiva Clear ENT: Positive: Hearing grossly normal. Negative: Nasal congestion, Nasal drainage, Trismus, Muffled voice, Hoarse voice Neck: Positive: Supple, Nontender, No Lymphadenopathy Respiratory: Positive: No respiratory distress, No accessory muscle use, Wheezing Cardiovascular: Positive: RRR, No Murmur Musculoskeletal: Positive: ROM Intact, No Edema Neurological: Positive: Alert Psychological Exam: Normal Skin Exam: Normal Diagnostics - Radiology No standard instances Radiology Interpretation Completed By: Radiologist Summary of Radiographic Findings: NAD Re-Evaluation - Re-Evaluation First Eval Re-Evaluation Time: 13:36 Change: Improved - better air movement/still wheezing Respiratory Course/Dx - Differential Dx/Diagnosis Provider Diagnosis: Acute bronchitis with bronchospasm Discharge ED - Sign-Out/Discharge Documenting (check all that apply): Patient Departure All imaging exams completed and their final reports reviewed: Yes - Discharge Plan Condition: Stable Disposition: HOME Patient Education Materials: Acute Bronchitis (ED), How to Use a Metered-Dose Inhaler and a Spacer (ED) Referrals: Clayton Alvarenga MD [Primary Care Provider] - 1 Week - Billing Disposition and Condition Condition: STABLE Disposition: Home
[2019-08-20] MEDS ORDERED: Ipratropium 0.5MG/2.5ML NEB* 0.5 MG/2.5 ML NEB.SOLN INH ONE (12:10)
[2019-08-20] MEDS ORDERED: Albuterol 2.5 MG/3 ML NEB.SOL* (0.083%) INH ONE (12:10)
[2019-08-20] MEDS ORDERED: Albuterol HFA INHALER* 8 gm MDI INH ONE (13:39)
== END 2019-08-20 13:50 | disposition home or self-care (01) ==
LOC: UCEAST 11:45
DX: J20.9 Acute bronchitis, unspecified (principal); F17.210 Nicotine dependence, cigarettes, uncomplicated
CPT/HCPCS: 71046; 99213; A9270-GY; G0463; J7512

== ENCOUNTER 2019-10-25 17:04 | Emergency (ER) | payer BC ==
--- OUTSIDE RECORDS SUMMARY | 2019-10-25 20:22 | XMS REPORT | Continuity of Care Document ---
:1990 External Reference #:[id number] Author Name Clara Karimi NP (transmitted by agent of provider Clayton Alvarenga) Address [address] [place] [id number] Problems Active Problems Provider Date Migraine without aura, not refractory Clayton Alvarenga MD Onset: 2011 Gastroesophageal reflux disease Clayton Alvarenga MD Onset: 12/29/2011 Low back pain Clayton Alvarenga MD Onset: 12/29/2011 Obesity Clayton Alvarenga MD Onset: 12/29/2011 Tobacco user Clayton Alvarenga MD Onset: 12/29/2011 Social History Type Date Description Comments Sex Unknown Tobacco Use Start: Unknown Currently smokes 1-5 Quit 12/24 Cigarettes Daily ETOH Use Denies alcohol use Tobacco Use Reviewed: 08/27/19 Patient is a current smoker, 3-5 cigarettes daily smokes every day Smoking Status Reviewed: 08/27/19 Patient is a current smoker, 3-5 cigarettes daily smokes every day Allergies, Adverse Reactions, Alerts Description No Known Drug Allergies Medications Active Medications SIG Qnty Indications Ordering Date Provider Prednisone 2 by mouth every 11tabs J20.9 Jina Beth, 08/27/2019 20mg Tablets day for 4 days then 1 by mouth every day for 3 days Ventolin HFA 2 puffs every 4 J20.9 Unknown 08/20/2019 108(90Base) hours as needed mcg/Act Aerosol for sob Cyclobenzaprine HCL take 1/2 to 1 30tabs M54.2 Digiovanjermaine, 07/19/2018 10mg tablet at MD Clayton Tablets bedtime as needed for neck pain/spasm (maximum daily dose=1) Meloxicam take one tablet 30tabs M54.2 Digiovanjermaine, 07/19/2018 15mg Tablets by mouth every MD Clayton day with food as needed for pain Chantix Starting Month use as directed 1month Z72.0 Digiovanna, 07/19/2018 Adrian Arnold MD 0.5mg X 11 & 1 mg X 42 Tablets Ibuprofen 1-2 by mouth OTC Unknown 200mg Tablets every 6 hours with food or snack as needed pain Nexplanon Unknown 68mg Implant Immunizations CPT Code Status Date Vaccine Reaction Lot # [id number] Given 06/14/2018 Flu Vaccine NOS WORK 01829 Given 08/11/2009 HPV Vaccine (Gardasil) 3 Dose Schedule 00807 Given 06/11/2009 Menactra/Menveo Meningococcal Vaccine 09596 Given 06/11/2009 Tdap (Adacel) Ages 7 And Above Only 61686 Given 06/11/2009 HPV Vaccine (Gardasil) 3 Dose Schedule 02784 Given 07/22/2006 Hepatitis B Vac Ped/Adolescent 3 Dose Schedule U-Td Given 04/26/2005 Td(Adult) (Non Billable) Unspecified 45402 Given 04/26/2005 Hepatitis B Vac Ped/Adolescent 3 Dose Schedule U-Polio Given 04/08/1997 Polio (Non Billable) Unspecified 92336 Given 04/08/1997 MMR Virus Immunization 18576 Given 04/08/1997 DTP Immunization 37532 Given 04/24/1996 Hepatitis B Vac Ped/Adolescent 3 Dose Schedule 68636 Given 09/09/1993 MMR Virus Immunization U-DTaP Given 09/09/1993 DTaP (Non Billable) Unspecified [id number] U-HIB Given 09/09/1993 Hib (Non Billable) Unspecified U-Polio Given 09/09/1993 Polio (Non Billable) Unspecified U-HIB Given 03/03/1993 Hib (Non Billable) Unspecified 59288 Given 03/03/1993 DTP Immunization U-Polio Given 1992 Polio (Non Billable) Unspecified U-HIB Given 1992 Hib (Non Billable) Unspecified 92164 Given 1992 DTP Immunization U-Polio Given 1992 Polio (Non Billable) Unspecified U-HIB Given 1992 Hib (Non Billable) Unspecified 67018 Given 1992 DTP Immunization Vital Signs Date Vital Result Comment 08/27/2019 4:11pm Body Temperature 99.6 F Weight 238.00 lb Heart Rate 90 /min BP Systolic 136 mmHg BP Diastolic 76 mmHg Respiratory Rate 18 /min Height 70.25 inches 5'10.25" O2 % BldC Oximetry 98 % BMI (Body Mass Index) 33.9 kg/m2 07/19/2018 2:20pm Weight 236.00 lb Heart Rate 72 /min BP Systolic 122 mmHg BP Diastolic 80 mmHg Respiratory Rate 18 /min Height 70.25 inches 5'10.25" BMI (Body Mass Index) 33.6 kg/m2 Results Test Acquired Date Facility Test Result H/L Range Note CBC Auto 06/05/2019 [facility] White Blood 5.2 10^3/uL Normal 3.5-10.8 Diff Count Red Blood Count 4.82 10^6/uL Normal 3.70-4.87 Hemoglobin 14.2 g/dL Normal 12.0-16.0 Hematocrit 43 % Normal 35-47 Mean Corpuscular Volume 88 fL Normal 80-97 Mean Corpuscular Hemoglobin 30 pg Normal 27-31 Mean Corpuscular HGB Conc 34 g/dL Normal 31-36 Red Cell Distribution Width 14 % Normal 10-15 Platelet Count 280 10^3/uL Normal 150-450 Mean Platelet Volume 6.6 fL Low 7.4-10.4 Abs Neutrophils 2.5 10^3/uL Normal 1.5-7.7 Abs Lymphocytes 2.0 10^3/uL Normal 1.0-4.8 Abs Monocytes 0.5 10^3/uL Normal 0-0.8 Abs Eosinophils 0.2 10^3/uL Normal 0-0.6 Abs Basophils 0.0 10^3/uL Normal 0-0.2 Abs Nucleated RBC 0.0 10^3/uL Granulocyte % 47.9 % Lymphocyte % 38.9 % Monocyte % 9.2 % Eosinophil % 3.2 % Basophil % 0.8 % Nucleated Red Blood Cells % 0.0 Comp Metabolic Panel 06/05/2019 [facility] Sodium 137 mmol/L Normal 135-145 Chloride 102 mmol/L Normal 101-111 Co2 Carbon Dioxide 27 mmol/L Normal 22-32 Glucose 92 mg/dL Normal 70-100 Blood Urea Nitrogen 15 mg/dL Normal 6-24 Creatinine 0.63 mg/dL Normal 0.51-0.95 BUN/Creatinine Ratio 23.8 High 8-20 Calcium 10.3 mg/dL Normal 8.6-10.3 Total Protein 8.6 g/dL Normal 6.4-8.9 Albumin 4.9 g/dL Normal 3.2-5.2 Globulin 3.7 g/dL Normal 2-4 Albumin/Globulin Ratio 1.3 Normal 1-3 Total Bilirubin 0.30 mg/dL Normal 0.2-1.0 Alkaline Phosphatase 83 U/L Normal 34-104 Alt 29 U/L Normal 7-52 Egfr Non- 113.4 >60 Egfr 137.2 >60 1 Potassium 3.9 mmol/L Normal 3.5-5.0 Anion Gap 8 mmol/L Normal 2-11 Ast 21 U/L Normal 13-39 Laboratory test finding 06/05/2019 [facility] Troponin I 0.02 ng /mL <0.04 2 HCG < 0.60 mIU/mL 3 1 Because ethnic data is not always readily available, this report includes an eGFR for both -Americans and non- Americans. The National Kidney Disease Education Program (NKDEP) does not endorse the use of the MDRD equation for patients that are not between the ages of 18 and 70, are , have extremes of body size, muscle mass, or nutritional status, or are non- or non-. According to the National Kidney Foundation, irrespective of diagnosis, the stage of the disease is based on the level of kidney function: Stage Description GFR(mL/min/1.73 m(2)) 1 Kidney damage with normal or decreased GFR 90 2 Kidney damage with mild decrease in GFR 60-89 3 Moderate decrease in GFR 30-59 4 Severe decrease in GFR 15-29 5 Kidney failure <15 (or dialysis) 2 Troponin-I testing on Plasma Separator Tubes (PST) has a known false positive rate of 0.20-0.40%. All positive troponins reflex immediately to secondary confirmatory testing. Using the [employer] DxI 800 Access Immunoassay systems, the 99th percentile upper reference limit was demonstrated to be < 0.03 ng/mL. 3 <5.0 Negative 5.0 - 25.0 Indeterminate (Repeat testing recommended after 72 hours) >25.0 Positive Perimenopausal women can display HCG levels of up to 20 mIU/mL Procedures Date Code Description Status 08/27/2019 60635 Measure Blood Oxygen Level Single Determination Completed Medical Devices Description No Information Available Encounters Description No Information Available Assessments Date Code Description Provider 08/27/2019 J20.9 Acute bronchitis, unspecified Clara Karimi NP 08/27/2019 Z72.0 Tobacco use Clara Karimi NP Plan of Treatment Future Appointment(s):09/19/2019 2:30 pm - Clayton Alvarenga MD at [facility]2019 - Clara Karimi NPJ20.9 Acute bronchitis, unspecifiedNew Medication: Prednisone 20 mg - 2 by mouth every day for 4 days then 1 by mouth every day for 3 daysComments:Acute BronchitisStart prednisone taper. Take with foodDiscussed use of VentolinSupportive care:Plenty of rest and fluids: Provided with work noteStart OTC Mucinex 600 mg every 12 hours until symptoms resolveDiscussed Chest PT at home. Will start today. OTC Analgesics/ antipyretics as neededYou should start to feel better over the next 2-3 days. If your symptoms worsen or you develop fever greater [id number], return to office for re-evaluation.Follow up:As [id number] Tobacco useComments:Discussed smoking cessation. Anticipates starting Chantix 08/28/19. Will follow-up with PCP at upcoming OV Functional Status Description No Information Available Mental Status Description No Information Available Referrals Description No Information Available
--- OUTSIDE RECORDS SUMMARY | 2019-10-25 20:22 | XMS REPORT | Continuity of Care Document ---
:1990 External Reference #:[id number] Author Name Clara Karimi, ESTEBAN Address [address] [place] [id number] Problems Active Problems Provider Date Migraine without [...] 08/27/2019 20mg Tablets day for 4 days MD then 1 by mouth every day for 3 days Ventolin HFA 2 puffs every 4 J20.9 Unknown 08/20/2019 108(90Base) hours as needed mcg/Act Aerosol for sob Cyclobenzaprine HCL take 1/2 to 1 30tabs M54.2 Carmelitaiovanjermaine, 07/19/2018 10mg tablet at MD Clayton Tablets bedtime as needed for neck pain/spasm (maximum daily dose=1) Meloxicam take one tablet 30tabs M54.2 Carmelitaiovanjermaine, 07/19/2018 15mg Tablets by mouth every MD [...] Q2039 Given 06/14/2018 Flu Vaccine NOS WORK 67762 Given 08/11/2009 HPV Vaccine (Gardasil) 3 Dose Schedule 60711 Given 06/11/2009 Menactra/Menveo Meningococcal Vaccine 32499 Given 06/11/2009 Tdap (Adacel) Ages 7 And Above Only 06407 Given 06/11/2009 HPV Vaccine (Gardasil) 3 Dose Schedule 55198 Given 07/22/2006 Hepatitis B Vac Ped/Adolescent 3 Dose Schedule U-Td Given 04/26/2005 Td(Adult) (Non Billable) Unspecified 96224 Given 04/26/2005 Hepatitis B Vac Ped/Adolescent 3 Dose Schedule U-Polio Given 04/08/1997 Polio (Non Billable) Unspecified 07698 Given 04/08/1997 MMR Virus Immunization 30413 Given 04/08/1997 DTP Immunization 43415 Given 04/24/1996 Hepatitis B Vac Ped/Adolescent 3 Dose Schedule 62409 Given 09/09/1993 MMR Virus Immunization U-DTaP Given 09/09/1993 DTaP (Non Billable) Unspecified [id number] U-HIB Given 09/09/1993 Hib (Non Billable) Unspecified U-Polio Given 09/09/1993 Polio (Non Billable) Unspecified U-HIB Given 03/03/1993 Hib (Non Billable) Unspecified 33515 Given 03/03/1993 DTP Immunization U-Polio Given 1992 Polio (Non Billable) Unspecified U-HIB Given 1992 Hib (Non Billable) Unspecified 15811 Given 1992 DTP Immunization U-Polio Given 1992 Polio (Non Billable) Unspecified U-HIB Given 1992 Hib (Non Billable) Unspecified 82716 Given 1992 DTP Immunization Vital Signs Date [...] Result H/L Range Note CBC Auto 06/05/2019 [facility] White Blood 5.2 10^3/uL Normal 3.5-10.8 Diff [...] Cells % 0.0 Comp Metabolic Panel 06/05/2019 [facility] Sodium 137 mmol/L Normal 135-145 Chloride 102 [...] U/L Normal 13-39 Laboratory test finding 06/05/2019 [facility] Troponin I 0.02 ng /mL <0.04 2 [...] immediately to secondary confirmatory testing. Using the [employer] DxI 800 Access Immunoassay systems, the 99th percentile upper reference limit was demonstrated to be < 0.03 ng/mL. 3 <5.0 Negative 5.0 - 25.0 Indeterminate (Repeat testing recommended after 72 hours) >25.0 Positive Perimenopausal women can display HCG levels of up to 20 mIU/mL Procedures Date Code Description Status 08/27/2019 61277 Measure Blood Oxygen Level Single Determination Completed Medical Devices Description No Information Available Encounters Description No Information Available Assessments Date Code Description Provider 08/27/2019 J20.9 Acute bronchitis, unspecified Clara Karimi NP 08/27/2019 Z72.0 Tobacco use Clara Karimi NP Plan of Treatment Future Appointment(s):09/19/2019 2:30 pm - Clayton Alvarenga MD at [facility]2019 - Clara Karimi NPJ20.9 Acute bronchitis, unspecifiedNew [...] symptoms worsen or you develop fever greater [id number], return to office for re-evaluation.Follow up:As uvgtcuU24.0 Tobacco useComments:Discussed smoking cessation. Anticipates starting Chantix 08/28/19. Will follow-up with PCP at upcoming OV Functional Status Description No Information Available Mental Status Description No Information Available Referrals Description No Information Available
[2019-10-25 20:33] VITALS: BP 123/70
[2019-10-25 20:51] LABS: Influenza A Molecular Negative (Negative); Influenza B Molecular Negative (Negative)
--- NOTE | 2019-10-25 20:56 | UC ---
FLU HPI - HPI Summary HPI Summary: 29-year-old female presents with 2 day history of headache. States took Excedrin this morning with no relief in the headache. Today started with general malaise, fatigue, chills, body aches, nasal congestion, runny nose, mild nausea, and occasional dry nonproductive cough. Reports coworkers who have tested positive for flu. No measured fever. Denies ear pain, sore throat , chest pain, shortness of breath, abdominal pain, vomiting, or diarrhea. - History of Current Complaint Chief Complaint: UCGeneralIllness Stated Complaint: FLU LIKE ILLNESS Time Seen by Provider: 10/25/19 20:21 Hx Obtained From: Patient Hx Last Menstrual Period: 10/25/2019 Pain Intensity: 0 - Allergy/Home Medications Allergies/Adverse Reactions: Allergies Allergy/AdvReac Type Severity Reaction Status Date / Time No Known Allergies Allergy Verified 10/25/19 20:28 Home Medications: Home Medications Aspirin/Acetaminophen/Caffeine [Excedrin Migraine Caplet] 2 each PO Q12H PRN 08/03 [History Confirmed 10/25/19] PMH/Surg Hx/FS Hx/Imm Hx Previously Healthy: Yes - Denies significant PMH - Surgical History Surgical History: Yes Surgery Procedure, Year, and Place: Tonsillectomy, 2007, [facility] Dr. Kelley. Partial Discectomy L4 L5, 2008, [facility]. Partial Discectomy L4 L5, 2009, [facility] [place] Dr. Leon. , 10/05/13, [facility] [place]. discectomy --2014. lap cholecystectomy 2014 - Family History Known Family History: Positive: Cardiac Disease - uncle DC @ 30s, father DC @ 46 , grandfather DC @ 50, Hypertension, Diabetes, Other - father with migraines/no hx DVT or PE Family History: father with migraines/no hx DVT or PE - Social History Occupation: Employed Full-time Lives: Alone Alcohol Use: Occasionally Alcohol Amount: 2 Substance Use Type: None Smoking Status (MU): Light Every Day Tobacco Smoker Type: Cigarettes Amount Used/How Often: 1/4 PPD Length of Time of Smoking/Using Tobacco: On and Off Since Age 21 Have You Smoked in the Last Year: Yes Household Exposure Type: Cigarettes - Immunization History Most Recent Influenza Vaccination: no Review of Systems All Other Systems Reviewed And Are Negative: Yes Constitutional: Positive: Chills, Fatigue. Negative: Fever Skin: Negative: Rash Eyes: Negative: Drainage, Eye Redness, Photophobia ENT: Positive: Nasal Discharge, Sinus Congestion. Negative: Sore Throat, Ear Ache, Sinus Pain/Tenderness Respiratory: Positive: Cough. Negative: Shortness Of Breath Cardiovascular: Negative: Palpitations, Chest Pain Gastrointestinal: Positive: Nausea. Negative: Abdominal Pain, Vomiting, Diarrhea Genitourinary: Positive: Negative Musculoskeletal: Positive: Myalgia Neurological/Mental Status: Positive: Headache Is Patient Immunocompromised?: No Physical Exam - Summary Physical Exam Summary: GENERAL APPEARANCE: Well developed, well nourished, alert and cooperative, and appears to be in no acute distress. EYES: Conjunctiva clear. No drainage. EARS: External auditory canals and tympanic membranes clear, hearing grossly intact. NOSE: Mild to moderate nasal congestion. No nasal discharge. THROAT: Pharynx normal. No tonsilar inflammation, swelling, exudate, or lesions. Uvula midline. NECK: Neck supple, non-tender without lymphadenopathy. CARDIAC: Normal S1 and S2. No S3, S4 or murmurs. Rhythm is regular. There is no peripheral edema, cyanosis or pallor. Extremities are warm and well perfused. Capillary refill is less than 2 seconds. Peripheral pulses intact. LUNGS: Clear to auscultation without rales, rhonchi, wheezing or diminished breath sounds. ABDOMEN: Positive bowel sounds. Soft, nondistended, nontender. No guarding or rebound. No masses or hepatosplenomegally. MUSKULOSKELETAL: ROM intact to all extremities. No joint erythema or tenderness. Normal muscular development. Normal gait. SKIN: Skin normal color, texture and turgor with no lesions or eruptions. Triage Information Reviewed: Yes Vital Signs: Initial Vital Signs Temp 99.1 F 10/25/19 20: Pulse 76 10/25/19 20:26 Resp 18 10/25/19 20:26 BP 123/70 10/25/19 20: Pulse Ox 100 10/25/19 20:26 Vital Signs Reviewed: Yes Flu Course/Dx - Course Course Of Treatment: 29-year-old female presents with 2 day history of headache. States took Excedrin this morning with no relief in the headache. Today started with general malaise, fatigue, chills, body aches, nasal congestion, runny nose, mild nausea, and occasional dry nonproductive cough. Reports coworkers who have tested positive for flu. No measured fever. Denies ear pain, sore throat , chest pain, shortness of breath, abdominal pain, vomiting, or diarrhea. Afebrile. Vital signs stable. Patient had mild nasal congestion, no nasal discharge, normal TMs, normal pharynx, no cervical lymphadenopathy, clear bilateral breath sounds, and otherwise unremarkable exam. Rapid flu test was negative. Reviewed results with the patient. She was given ketorolac 30 mg IM in the clinic for her headache. Recommending symptomatic treatment for a viral upper respiratory infection. She is to follow up with her primary care provider in 5-7 days if symptoms are not improving. Discharged WARNING symptoms reviewed of the patient. Verbalizes understanding and agrees to plan of care. - Differential Dx/Diagnosis Differential Diagnosis/HQI/PQRI: Bronchitis, Influenza, Pneumonia, Upper Respiratory Infection Provider Diagnosis: Upper respiratory infection Discharge ED - Sign-Out/Discharge Documenting (check all that apply): Patient Departure All imaging exams completed and their final reports reviewed: No Studies - Discharge Plan Condition: Stable Disposition: HOME Patient Education Materials: Upper Respiratory Infection (ED) Forms: *Work Release Referrals: Clayton Alvarenga MD [Primary Care Provider] - 5 Days Additional Instructions: Your flu test performed in the clinic today was negative. Your history and exam are consistent with a viral upper respiratory infection. Viral infections do not respond to antibiotics and are limited to the treatment of symptoms. Viral infections typically run their course in 7-10 days. Drink plenty of fluids to avoid dehydration especially if you are running any fever. Use a saline rinse kit such as Neti Pot or NeilMed at least twice a day to help thin secretions and promote drainage of the sinuses. Use fluticasone (Flonase) nasal spray 2 sprays each nostril once daily. Take over the counter acetaminophen (Tylenol) or ibuprofen (Advil, Motrin) according to directions as needed for pain or fever. You were given an injection of an anti-inflammatory pain medication called ketorolac at around 9:15 pm for your headache. Do not take any other anti- inflammatory medications such as ibuprofen (Advil, Motrin), naproxen (Aleve), or aspirin for at least 8 hours after receiving this medication. Use salt water gargles several times a day if you have a sore throat. You may also use Chloraseptic spray or Cepacol lonzenges according to directions which contain a numbing medication and can provide some temporary relief from your sore throat. Follow up with your primary care provider in 5-7 days if symptoms persist. Seek immediate medical attention in the emergency room if you have fever greater than 100.5 F despite taking acetaminophen or ibuprofen, have chest pain , difficulty breathing, are unable to swallow, or have any worsening of symptoms. - Billing Disposition and Condition Condition: STABLE Disposition: Home - Attestation Statements Provider Attestation: This patient was not seen by me. I was available for consult. Chart reviewed. RONALD
[2019-10-25] MEDS ORDERED: Ketorolac INJ* 30 MG/ML 1 ML VIAL IM ONE (21:04)
== END 2019-10-25 21:17 | disposition home or self-care (01) ==
LOC: UCCORT 17:04
DX: J06.9 Acute upper respiratory infection, unspecified (principal); F17.210 Nicotine dependence, cigarettes, uncomplicated
CPT/HCPCS: 96372; 99211; G0463; J1885

== ENCOUNTER 2019-11-19 12:00 | Emergency (ER) | payer BC ==
--- NOTE | 2019-11-19 12:24 | UC ---
Skin Complaint HPI - HPI Summary HPI Summary: 29-year-old female presents with complaints of a burn to her left leg. States yesterday she accidentally dumped hot hammond grease onto her leg. Presents today because she has developed some increased pain and blistering. She has taken ibuprofen 800 mg with some relief in the pain. Has been applying aloe vera ointment to the burn. Denies fever, chills, or purulent drainage. - History of Current Complaint Chief Complaint: UCBurn Time Seen by Provider: 11/19/19 12:01 Stated Complaint: BURN INJURY Hx Obtained From: Patient Hx Last Menstrual Period: 3 weeks ago Pain Intensity: 8 - Allergy/Home Medications Allergies/Adverse Reactions: Allergies Allergy/AdvReac Type Severity Reaction Status Date / Time No Known Allergies Allergy Verified 11/19/19 12:11 Home Medications: Home Medications Aspirin/Acetaminophen/Caffeine [Excedrin Migraine Caplet] 2 each PO Q12H PRN 08/03 [History Confirmed 11/19/19] Ibuprofen TAB* [Advil TAB*] 800 mg PO PRN 11/19/19 [History] Melatonin 1 mg PO 11/19/19 [History] Silver Sulfadiazine 50 gm TP BID #1 cream..g. 11/19/19 [Rx] PMH/Surg Hx/FS Hx/Imm Hx Previously Healthy: Yes - Denies significant PMH - Surgical History Surgical History: Yes Surgery Procedure, Year, and Place: Tonsillectomy, 2007, [facility] Dr. Kelley. Partial Discectomy L4 L5, 2008, [place]. [place] L4 L5, [place], [facility] [place]. , [place] [facility] [place] discectomy [place]2014. lap cholecystectomy 2014. another back surgery - Family History Known Family History: Positive: Cardiac Disease - uncle MD @ 30s, father MD @ 46 , grandfather MD @ 50, Hypertension, Diabetes, Other - father with migraines/no hx DVT or PE Family History: father with migraines/no hx DVT or PE - Social History Occupation: Employed Full-time Lives: Alone Alcohol Use: Occasionally Alcohol Amount: 2 Substance Use Type: None Smoking Status (MU): Light Every Day Tobacco Smoker Type: Cigarettes Amount Used/How Often: "a few a day" Length of Time of Smoking/Using Tobacco: On and Off Since Age 21 Have You Smoked in the Last Year: Yes Household Exposure Type: Cigarettes - Immunization History Most Recent Influenza Vaccination: no Review of Systems All Other Systems Reviewed And Are Negative: Yes Constitutional: Negative: Fever, Chills Skin: Positive: Other - See HPI Respiratory: Positive: Negative Cardiovascular: Positive: Negative Gastrointestinal: Positive: Negative Genitourinary: Positive: Negative Musculoskeletal: Positive: Negative Neurological/Mental Status: Positive: Negative Is Patient Immunocompromised?: No Physical Exam - Summary Physical Exam Summary: GENERAL APPEARANCE: Well developed, well nourished, alert and cooperative, and appears to be in no acute distress. CARDIAC: Normal S1 and S2. No S3, S4 or murmurs. Rhythm is regular. There is no peripheral edema, cyanosis or pallor. Extremities are warm and well perfused. Capillary refill is less than 2 seconds. Peripheral pulses intact. LUNGS: Clear to auscultation without rales, rhonchi, wheezing or diminished breath sounds. ABDOMEN: Positive bowel sounds. Soft, nondistended, nontender. No guarding or rebound. No masses or hepatosplenomegally. MUSKULOSKELETAL: ROM intact to all extremities. No joint erythema or tenderness. Normal muscular development. Normal gait. EXTREMITIES: 2nd degree burn of the left anterior thigh and proximal lower leg with 2 intact buellae covering approximately 3% of total body surface. SKIN: Skin normal color, texture and turgor. Triage Information Reviewed: Yes Vital Signs Reviewed: Yes Images Front/Back of Body, Lg (Hayes): 1 - Second degree burn with 2 intact buellae Course/Dx - Course Course Of Treatment: 29-year-old female presents with complaints of a burn to her left leg. States yesterday she accidentally dumped hot hammond grease onto her leg. Presents today because she has developed some increased pain and blistering. She has taken ibuprofen 800 mg with some relief in the pain. Has been applying aloe vera ointment to the burn. Denies fever, chills, or purulent drainage. Afebrile. Vital signs stable. Patient had a 2nd degree burn of the left anterior thigh and proximal lower leg with 2 intact buellae covering approximately 3% of total body surface. Remainder of exam was unremarkable. Recommending conservative care including use of [id number] NSAIDs for pain management. Silvadene ointment and a nonstick dressing were applied by the RN. Patient was instructed on wound care at home. She is to follow up with her primary care provider in 5-7 days if symptoms are not improving. Anticipatory guidance and warning symptoms are reviewed with the patient. Verbalizes understanding and agrees with plan of care. - Differential Diagnoses - Skin Complaint Differential Diagnoses: Cellulitis - Diagnoses Provider Diagnosis: Second degree burn of left thigh Discharge ED - Sign-Out/Discharge Documenting (check all that apply): Patient Departure All imaging exams completed and their final reports reviewed: No Studies - Discharge Plan Condition: Stable Disposition: HOME Prescriptions: Silver Sulfadiazine 50 gm TP BID #1 cream..g. Patient Education Materials: Second Degree Burn (ED) Forms: *Work Release Referrals: Clayton Alvarenga MD [Primary Care Provider] - 5 Days (If no improvement in symptoms) Additional Instructions: You have a second-degree burn to your leg. It will take 2-3 weeks for this to completely heal. Cleanse the area twice daily with a gentle soap and water then apply a thin layer of the Silvadene ointment over the affected area and cover with a nonstick gauze dressing. Be sure to thoroughly wash your hands before each dressing change. Do not break open any blisters as this will increase the risk for infection. Try to keep her leg elevated to help reduce swelling. Take ibuprofen (Advil, Motrin) or naproxen (Aleve) according directions as needed for pain. Follow-up with your primary care provider in 5-7 days if there is no improvement in your symptoms. Watch for signs of infection including fever greater than 100.5 F, severe pain not managed with pain medication, redness that spreads, or pus draining from the wound. Seek immediate medical attention should any of these occur. - Billing Disposition and Condition Condition: STABLE Disposition: Home
[2019-11-19 12:26] VITALS: BP 139/74
[2019-11-19] MEDS ORDERED: Silver Sulfadiazine 1%* 20 GM TOPICAL ONE ×2 (12:31→12:34)
== END 2019-11-19 13:10 | disposition home or self-care (01) ==
LOC: UCEAST 12:00
DX: T24.212A Burn of second degree of left thigh, initial encounter (principal); T31.0 Burns involving less than 10% of body surface; X12.XXXA Contact with other hot fluids, initial encounter; Y92.9 Unspecified place or not applicable; F17.210 Nicotine dependence, cigarettes, uncomplicated
CPT/HCPCS: 99213; A9270-GY; G0463